=== PATIENT | female | born 1945 | race Caucasian/White ===

== ENCOUNTER 2019-11-07 15:00 | Outpatient (RCR) | payer MEDICARE, SELFPAY ==
--- NOTE | 2019-09-12 15:33 | PTOPEVAL ---
Thank you for referring this patient to [facility]. Please review, sign, date and return this plan of care EDU. Pt referred to therapy following recent injury to her right knee. She demonstrates a decline in her walking speed, right knee range and LE strength compared to her last bout of therapy. She demonstrates a decline on her Stevens balance score and performance with functional transfers, ambulation and negotiating steps. She would benefit from skilled therapy 2x/wk x 5 wk to achieve therapy goals. I agree with and certify that the following plan of care is medically necessary. Referring Physician Date Attending Provider: Aj Crain, Referring Provider: *PT Outpatient Evaluation Start: 09/12/19 12:27 Freq: Status: Active Protocol: Document 09/12/19 12:30 CAP (Rec: 09/12/19 13:49 CAP [email or web address]) Therapy Assessment Status Assessment Status Assessment Status Evaluation Outpatient Past Medical History Neurological History Hx Parkinson's Disease Yes Cardiovascular History Hx Myocardial Infarction Yes Musculoskeletal History Hx Joint Replacement Yes: left TKR Endocrine History Hx Diabetes Yes: border line Evaluation Information Problem Diagnosis right knee pain Cause 2-3 wk ago Subjective Information She was walking 2 wks when she Query Text:As Reported By Patient/ twisted her right knee. She Family stepped wrong and had increased knee pain yesterday when cleaning. She reports limitations with walking in the house and community. She is limited with tolerating steps in the basement. She denies any recent falls. Denies use of assistive device at home. She is performing her HEP inconsistent. She has been using her stationary bike the past two days to improve her knee motion. Diagnostic Tests X-Rays For This Problem No Prior Level of Function Activity Level (Last 3 Months) Occupation retired Activity of Daily Living Ability Needs Some Help Indoor/Home Mobility Independent Community Mobility Needs Some Help Cooking Yes Laundry Yes Driving No Home Setting Home Type House,Multiple Levels Environmental Barriers Stairs, 2-4,Stairs, Greater than 4 Living Situation With Spouse Support Available
--- NOTE | 2019-09-13 13:14 | STOPEVAL ---
Thank you for referring this patient to [facility]. Speech Therapy is recommended x2 week 4 for increasing vocal intensity, mild memory decline, and word finding. Please review, sign, date and return this plan of care EDU. I agree with and certify that the following plan of care is medically necessary. Referring Physician Date Attending Provider: Aj CrainMD Referring Provider: FERMIN Outpatient Initial Evaluation Start: 09/13/19 11:45 Freq: Status: Active Protocol: Document 09/12/19 14:00 LINDY (Rec: 09/13/19 13:13 BECHERERT [email or web address]) Therapy Assessment Status Assessment Status Assessment Status Evaluation Outpatient Past Medical History Neurological History Hx Parkinson's Disease Yes Cardiovascular History Hx Myocardial Infarction Yes Genitourinary History Hx Other Genitourinary Disorders Yes: went to PT for pelvic muscle control Musculoskeletal History Hx Joint Replacement Yes: left TKR Endocrine History Hx Diabetes Yes: border line HEENT History Hx Cataracts Yes: surgery bilateral Integumentary History Hx Other Skin Disorders Yes: skin allergies Evaluation Information Problem Diagnosis Parkinson disease Onset approximately 1 year ago Additional Evaluation Detail Pt presents to OP speech therapy with chief complaints of: people can't hear me and tell me to talk louder, searching for words, and decreased memory . Pt and her spouse reported that she was diagnosed approximately a year ago. They have 1 son who does not live local. 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 She enjoys taking weekend trips, belonging to an [employer], and watching TV. She no longer performs much if any cooking or cleaning and no longer drives. She rarely accompanies her to the grocery store stating that she's too slow. She reports that her vision has become increasingly blurred; therefore, she rarely reads or writes. She is usually never home alone unless her is gone for a short time. Subjective Information
--- NOTE | 2019-10-12 11:25 | PCPTNOTE ---
Patient called & cancelled scheduled appointment this date due to weather and sickness.
--- NOTE | 2019-10-23 15:52 | STOPEVAL ---
SPEECH THERAPY DISCHARGE: Thank you for referring this patient to [facility]. Pt has completed 8 speech therapy visits that focused on improving vocal loudness, word finding, and memory. Upon completion of this re evaluation, pt has achieved all goals; therefore, she will be discharged. Please review, sign, date and return this plan of care EDU. I agree with and certify that the following plan of care is medically necessary. Referring Physician Date Admitting Provider: Attending Provider: Aj CrainMD Referring Provider: FERMIN Outpatient RE Evaluation Start: 09/13/19 11:45 Freq: Status: Active Protocol: Document 10/23/19 15:11 BECHERERT (Rec: 10/23/19 15:52 BECHERERT [email or web address]) Therapy Assessment Status Assessment Status Assessment Status Re-evaluation Outpatient Past Medical History Neurological History Hx Parkinson's Disease Yes Cardiovascular History Hx Myocardial Infarction Yes Genitourinary History Hx Other Genitourinary Disorders Yes: went to PT for pelvic muscle control Musculoskeletal History Hx Joint Replacement Yes: left TKR Endocrine History Hx Diabetes Yes: border line HEENT History Hx Cataracts Yes: surgery bilateral Integumentary History Hx Other Skin Disorders Yes: skin allergies Pain Assessment Timing of Pain Assessment Timing of Pain Assessment Re-assessment Pain Scale Pain Scale Used Numeric (1 - 10) Self Report Pain Assessment Left Knee(s) Reported Pain Level 1 Pain Description Stabbing Right Knee(s) Reported Pain Level 2 Pain Description Stabbing Pain Score Pain Score 2,1: Self Report Language Evaluation Verbal Expression Automatic Speech Ability No Impairments [place] Speech No Impairments Automatic Cued Speech (% Accuracy (0-100 100 )) Open Ended Cued Speech (% Accuracy (0- 100 100)) WH Questions (% Accuracy (0-100)) 100 Confrontational Naming (% Accuracy (0- 100 100)) Sentence Formation Given a Stimulus Word 100 (% Accuracy (0-100)) Sentence Formation in Spontaneous 100 Conversation (% Accuracy (0-100)) Connected Speech No Impairments Response Latency No Impairments Overall Verbal Expression Ability WNL Cognitive Evaluation Orientation/Memory Assessment Immediate Memory 90 Query Text:% Accuracy Recent Memory 100 Query Text:% Accuracy Remote Memory 100 Query Text:% Accuracy Temporal Orientation 100 Query Text:% Accuracy Overall Orientation and Memory mild-mod Orientation/Raul
--- NOTE | 2019-10-23 16:56 | PTOPEVAL ---
Thank you for referring this patient to [facility]. Please review, sign, date and return this plan of care EDU. Pt has received 9 physical therapy visits to address impairments related to her knee pain. She demonstrates progress with walking endurance, LE strength, and knee edema. She presents with increased knee pain at rest and with walking. She has declined with functional mobility on 5 rep sit<>stand and TUG. Pt would benefit from 4 additional visits to finalize her HEP. Cont PT 2x/wk x 2 additional weeks. I agree with and certify that the following plan of care is medically necessary. Referring Physician Date Attending Provider: Aj CrainMD Referring Provider: *PT Outpatient Re-Evaluation Start: 09/12/19 12:27 Freq: Status: Active Protocol: Document 10/23/19 15:59 JOSELUIS (Rec: 10/23/19 16:56 [facility] [email or web address]) Therapy Assessment Status Assessment Status Assessment Status Re-evaluation Outpatient Past Medical History Neurological History Hx Parkinson's Disease Yes Cardiovascular History Hx Myocardial Infarction Yes Genitourinary History Hx Other Genitourinary Disorders Yes: went to PT for pelvic muscle control Musculoskeletal History Hx Joint Replacement Yes: left TKR Endocrine History Hx Diabetes Yes: border line HEENT History Hx Cataracts Yes: surgery bilateral Integumentary History Hx Other Skin Disorders Yes: skin allergies Evaluation Information Problem Diagnosis Parkinson disease Onset approximately 1 year ago Cause 2-3 wk ago Subjective Information Pt reports she twisted her Query Text:As Reported By Patient/ knees on Sat when she turned Family when walking at home. She reports increased knee stiffness with sitting at home . REports her ankle are more swollen since twisting her knees this weekend. States she has compression socks at home , but has not tried to wear them for at least a year. She does not use ice her knee for the pain and swelling. She denies any falls at home. She has not used her bike at home for the past week. She is not consistently performing her HEP and she is not performing community distance walking. Pain Assessment Timing of Pain Assessment Timing of Pain Assessment Re-assessment Pain Scale Pain Scale Used
--- NOTE | 2019-11-07 17:23 | PCPTNOTE ---
Attending Provider: Aj CrainMD Patient:Maxine Kaufman Date of :1945 Patient has received 12 therapy visit from 09/12/19-11/07/19 to address her knee pain and decreased tolerance with functional mobility. She demonstrates limited progress towards her therapy goals and no changes in her right knee pain with therapy. She is independent with her HEP. DC skilled therapy at this time with pt to continue with her walking program, leg bike and daily HEP. Thank you for referring this patient to [facility]. Please review, sign, date and return this discharge summary EDU. I have been updated about the patient's current status and I agree with discharge from the above service at this time. Referring Physician Date
== END 2019-11-08 11:13 | disposition home or self-care (01) ==
LOC: ANHPT 15:00
PROVIDERS: PCP Family Medicine; Visit Provider Family Medicine
DX: G20 Parkinson's disease (principal); R47.89 Other speech disturbances
CPT/HCPCS: 92507; 92523; 97110; 97116; 97129; 97130; 97162; 97530

== ENCOUNTER 2020-03-03 19:48 | Inpatient (IN) | payer MEDICARE, SELFPAY ==
--- NOTE | ~2020-03-03 | CT_ITS ---
EXAMINATION: CT cervical spine wo con EXAM DATE: 03/04/2020 10:26 INDICATION: Initial encounter following injury, with pain of the cervical spine. TECHNIQUE: Spiral CT of the cervical spine was performed without contrast. Axial images were reviewe d. Coronal and sagittal reformatted images were also reviewed. The dose-length product (DLP) for thi s examination was 190.31 mGy-cm. The exposure was tailored according to patient size (auto mA exposu re control), and iterative reconstruction (ASIR) was used as additional dose reduction technique. Th ere is no prior study for comparison. FINDINGS: There is no evidence of acute cervical fracture. The odontoid process is intact. Pre-dens space is normal. Prevertebral soft tissue is normal. There are no soft tissue abnormalities identi fied. There is no disc space widening or traumatic vertebral body subluxation suspected. Advanced l eft-sided cervical facet arthropathy, C5-6 and 6-7 disc disease and uncovertebral joint disease. A d etailed level by level evaluation of spondylosis can be added as addendum if requested. IMPRESSION: 1. No acute cervical fracture. 2. Advanced C5-7 spondylosis, left-sided cervical facet arthropathy. Reviewed, dictated and finalized at location B.
--- NOTE | ~2020-03-03 | XR_ITS ---
EXAMINATION: XR hip LT 1V INDICATION: Postoperative bipolar left hip TECHNIQUE: AP view of the left hip is obtained. COMPARISON: 03/03/2020 FINDINGS: There are expected postsurgical changes of left total hip arthroplasty in anatomic alignmen t. IMPRESSION: 1. Left total hip arthroplasty in anatomic alignment. Please refer to procedure note for full details . Reviewed, dictated and finalized at location A. IMPRESSION: 1. Left total hip arthroplasty in anatomic alignment. Please refer to procedure note for full details.
--- NOTE | ~2020-03-03 | CT_ITS ---
EXAMINATION: CT brain wo con DATE: 03/09/2020 15:26 INDICATION: Postoperative confusion. Parkinson's disease. TECHNIQUE: Computed tomography (CT) of the head was performed without intravenous contrast. The mA wa s adjusted according to patient size. Iterative reconstruction technique was employed. Exam dose: 60 5.33 mGy-cm total exam DLP. COMPARISON: 03/04/2020 CT brain FINDINGS: Cavum septum pellucidum and cavum vergae, anatomic variants. No intracranial mass lesion or hemorrhage or recent cerebrovascular accident is evident. No midline s hift or mass effects. There is nonspecific diminished attenuation of the cerebral white matter, likel y due to chronic small vessel ischemic changes. There are prominent bilateral carotid siphon internal carotid artery calcifications. No subdural or epidural hematoma. No fracture or bone destruction of the cranial vault. The included paranasal sinuses and the mastoid air cells are normally developed and aerated. IMPRESSION: No acute intracranial finding or significant change since 03/04/2020 Reviewed, dictated and finalized at Location A. Reviewed, dictated and finalized at location A.
--- NOTE | ~2020-03-03 | XR_ITS ---
EXAMINATION: XR hip LT 2V w AP pelvis INDICATION: Left hip pain, initial encounter TECHNIQUE: AP view of the pelvis and two views of the left hip are obtained. COMPARISON: None available FINDINGS: There is an acute, traumatic, closed, subcapital fracture of the left femoral neck. The fem oral head remains seated in the acetabulum. No additional acute osseous abnormality is identified. Th ere are phleboliths of the pelvis. A large fundal colonic stool is noted. IMPRESSION: 1. Acute subcapital left femoral neck fracture. Reviewed, dictated and finalized at location A.
--- NOTE | ~2020-03-03 | XR_ITS ---
EXAMINATION: XR chest 1V portable DATE: 03/03/2020 22:09 INDICATION: Neck pain post fall TECHNIQUE: frontal view of the chest was obtained. COMPARISON: Chest radiograph dated 12/24/2017 FINDINGS: Skinfold projects over the left upper lung zone. No airspace opacities, pulmonary edema, pleural effu trisha or pneumothorax. The cardiomediastinal silhouette is normal. Mild thoracic dextrocurvature with moderate spondylosis. IMPRESSION: 1. No acute cardiopulmonary disease. Reviewed, dictated and finalized at location A.
--- NOTE | ~2020-03-03 | XR_ITS ---
XR chest 2V DATE: 03/09/2020 15:33 INDICATION: Fever and shortness of breath TECHNIQUE: AP and lateral views COMPARISON: 03/03/2020 portable AP chest FINDINGS: Normal heart size. Mild aortic calcification and unfolding. No hilar or mediastinal enlarge ment. No pulmonary infiltrate or consolidation, pleural effusion or pulmonary vascular congestion or pneumothorax. Osteopenia. Degenerative spurring of the thoracic and lumbar spine. IMPRESSION: No active cardiopulmonary disease Reviewed, dictated and finalized at location A.
--- NOTE | ~2020-03-03 | CT_ITS ---
EXAMINATION: CT brain wo con EXAM DATE: 03/04/2020 11:48 INDICATION: Initial encounter following injury, with pain of the head. Fall, subsequent headache. TECHNIQUE: Spiral CT of the head was performed without contrast. Axial, coronal and sagittal images were reviewed. The dose-length product (DLP) for this examination was 605.33 mGy-cm. The exposure w as tailored according to patient size, and iterative reconstruction (ASIR) was used as additional dos e reduction technique. There is no prior study for comparison. FINDINGS: There is no acute intraparenchymal hemorrhage. No evidence of intraparenchymal brain mass lesion. No evidence of acute infarction. Please note that initial head CT has limited sensitivity f or small or acute infarctions. 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 There is mild p eriventricular and subcortical hypodensity, nonspecific but probably related to small vessel ischemic disease. There is mild prominence of the sulci and ventricles related to cerebral atrophy. There is intracranial carotid arteriosclerosis. There are no extra-axial collections. There is no mass e ffect or midline shift. Patient has had bilateral ocular lens surgery. Soft tissue is unremarkable. The visualized sinuses and mastoid air cells are well aerated. IMPRESSION: 1. No acute intracranial findings. 2. Mild age-related findings. Reviewed, dictated and finalized at location B.
[2020-03-03 19:53] VITALS: PULSE 76; RESP 17; TEMP 37.3; O2SAT 100
--- NOTE | 2020-03-03 19:55 | ED.FALL ---
HPI - Fall General Chief Complaint: Fall Stated Complaint: L hip pain Time Seen by Provider: 03/03/20 19:54 History of Present Illness HPI Narrative: 74 yo female presents from home c/o left groin pain s/p fall. She was working in the kitchen when she slipped and fell backwards onto her buttocks. She was not able to to stand or ambulate due to the pain in her left groin area. The pain has improved since onset. She did not strike her head. No LOC, dizziness, weakness, back pain. Related Data Home Medications Medication Instructions Recorded Confirmed carbidopa-levodopa 1 tablet PO QID 03/03/20 clopidogrel 75 mg PO DAILY 03/03/20 ezetimibe 10 mg PO DAILY 03/03/20 furosemide 20 mg PO DAILY 03/03/20 gabapentin 100 mg PO TID 03/03/20 lisinopril 10 mg PO DAILY 03/03/20 metoprolol tartrate 50 mg PO BID 03/03/20 Allergies Allergy/AdvReac Type Severity Reaction Status Date / Time No Known Allergies Allergy Verified 03/03/20 21:06 Review of Systems Review of Systems: All systems reviewed & are unremarkable except as noted in HPI and below Constitutional: Constitutional: Denies fever(s) Cardiovascular: Cardiovascular: Denies chest pain Respiratory: Respiratory: Denies dyspnea Gastrointestinal: Gastrointestinal: Denies nausea PMFSH Social History Social History Gender identity (if verbalized by the patient): Female Exam Const: General: no acute distress and alert Orientation/consciousness: patient oriented x3 HENMT: Head: normal to inspection Neck: Neck: normal visual inspection and no lymphadenopathy Chest: Chest palpation & inspection: no tenderness Resp: Effort & Inspection: normal respiratory effort Auscultation: clear to auscultation bilaterally, no rales, no rhonchi and no wheezes Cardio: Jugular venous distension: no JVD Rate: regular rate Rhythm: regular rhythm Heart sounds: no murmurs GI: Inspection: non-distended GI Palp: Yes Soft to palpation and No Tenderness to palpation present (GI) Skin: General skin exam: normal color Neuro: General: patient oriented x3, moves all extremities and CN's II-XI intact bilaterally Speech: normal speech Extrem: Other: Pain with log roll and flexion of left hip. No tenderness or deformity. Psych: Appearance: well kempt Affect: normal affect Course Vital Signs Vital signs: Vital Signs Temperature 37.3 C 03/03/20 19:53 Pulse Rate 76 03/03/20 19:53 Respiratory Rate 17 03/03/20 19:53 Pulse Oximetry 100 03/03/20 19:53 Temperature 36.7 C 03/03/20 23:11 Pulse Rate 71 03/04/20 00:40 Respiratory Rate 16 03/04/20 00:40 Blood Pressure 133/59 L 03/04/20 00:40 Pulse Oximetry 96 03/04/20 00:40 MDM - Fall MDM Narrative Medical decision making narrative: Case discussed with Dr. Agrawal. Will get pre-op labs and admit to the hospitalist. Medical Records Attestation: I reviewed the patient's medical records. Lab Data Attestation: I reviewed the patient's lab results. Result diagrams: 03/03/20 22:28 03/03/20 22:28 Labs: Lab Results 03/03/20 03/03/20 03/03/20 Range/Units 22:28 22:28 22:28 WBC 7.5 (4.5-10.0) K/mm3 RBC 4.09 L (4.2-5.4) M/mm3 Hgb 12.4 (12.0-15.0) g/dL Hct 38.5 (37.0-47.0) % MCV 94.1 (80-100) fl MCH 30.3 (26-34) pg MCHC 32.2 (32-36) g/dl RDW 13.5 (11.5-14.5) % Plt Count 158 (150-375) k/mm3 MPV 10.0 (7.4-10.4) fl Immature Gran % (Auto) 0.4 (0-0.5) % Neut % (Auto) 62.3 (45.5-73.1) % Lymph % (Auto) 29.2 (18.3-44.2) % Merrick % (Auto) 7.1 (2.6-8.5) % Eos % (Auto) 0.7 (0-4.4) % Baso % (Auto) 0.3 (0.2-1.2) % Lymph # (Auto) 2.19 (0.9-3.2) K/mm3 Merrick # (Auto) 0.5 (0.1-0.6) K/mm3 Eos # (Auto) 0.1 (0-0.3) K/mm3 Baso # (Auto) 0.0 (0.0-0.1) K/mm3 Abs Immat Gran (auto) 0.03 (0.00-0.031) K/mm3 Absolute Neuts (auto) 4.7
[2020-03-03 20:01] VITALS: BP 143/60; PULSE 77; RESP 18; TEMP 37.3; O2SAT 100
[2020-03-03 21:12] VITALS: BP 149/66; PULSE 67; RESP 18; TEMP 37.6; O2SAT 97
[2020-03-03] MEDS: MORPHINE SULFATE 2 MG/ML INJ IV PUSH ×2 (21:52→23:25)
[2020-03-03 21:56] VITALS: BP 152/72; PULSE 74; RESP 16; TEMP 36.7; O2SAT 96
[2020-03-03 22:40] LABS: Basophils Percent Auto 0.3 % (0.2-1.2); Eosinophils Absolute Auto 0.1 K/mm3 (0-0.3); Eosinophils Percent Auto 0.7 % (0-4.4); Hematocrit 38.5 % (37.0-47.0); Hemoglobin 12.4 g/dL (12.0-15.0); Immature Granulocyte Absolute 0.03 K/mm3 (0.00-0.031); Immature Granulocyte Percent A 0.4 % (0-0.5); Immature Platelet Fraction Pct 1.8 % (0.9-11.2); Lymphocytes Absolute Auto 2.19 K/mm3 (0.9-3.2); Lymphocytes Percent Auto 29.2 % (18.3-44.2); Mean Corpuscular HGB Conc 32.2 g/dl (32-36); Mean Corpuscular Hemoglobin 30.3 pg (26-34); Mean Corpuscular Volume 94.1 fl (80-100); Monocytes Absolute Auto 0.5 K/mm3 (0.1-0.6); Monocytes Percent Auto 7.1 % (2.6-8.5); Neutrophils Absolute Auto 4.7 K/mm3 (1.3-6.7); Neutrophils Percent Auto 62.3 % (45.5-73.1); Platelet Count Result 158 k/mm3 (150-375); Red Blood Count 4.09 M/mm3 (4.2-5.4); Red Cell Distribution Width 13.5 % (11.5-14.5); White Blood Count 7.5 K/mm3 (4.5-10.0)
[2020-03-03 22:47] LABS: INR 1.1; Partial Thromboplastin Time 28.5 SECONDS (22.3-36.8); Prothrombin Time 13.5 Seconds (11.1-14.7)
[2020-03-03 23:00] LABS: Blood Urea Nitrogen 25 mg/dL (7-17); Calcium 9.1 mg/dL (8.4-10.2); Carbon Dioxide 28 mmol/L (22-30); Chloride 105 mmol/L (98-107); Estimated CRCL calculation 37 ml/min; Estimated Glomerular Filt Rate 54; Glucose 119 mg/dL (65-105); Potassium 3.9 mmol/L (3.4-5.0); Sodium 136 mmol/L (137-145)
[2020-03-03 23:11] VITALS: BP 157/66; PULSE 74; RESP 14; TEMP 36.7; O2SAT 97
[2020-03-04] VITALS (7 sets, daily range): BP systolic 99–162; BP diastolic 36–61; PULSE 54–104; RESP 16–18; TEMP 36.1–37.2; O2SAT 96–100; BMI 26.5
--- NOTE | 2020-03-04 00:53 | ECG_ITS ---
Measurements Intervals [place] Rate: 67 P: 54 [place]: 176 QRS: 39 QRSD: 89 T: 17 QT: 397 QTc: 421 Interpretive Statements SINUS RHYTHM BASELINE ARTIFACT- I, II, III NORMAL ECG Electronically Signed On 03-04-2020 7:07:44 CDT by Willi Navarrete D.O.
[2020-03-04] MEDS: ONDANSETRON INJ 4 MG/2 ML VIAL IV PUSH ×3 (01:38→16:14)
[2020-03-04] MEDS: MORPHINE SULFATE 4 MG/ML INJ IV PUSH (01:38)
[2020-03-04] MEDS: LACTATED RINGERS 1,000 ML 75 ML IV CONT (01:39)
--- NOTE | 2020-03-04 02:08 | PC.NURSE ---
This patient, Maxine Kaufman, was admitted to [facility] Surg Room 317-01. Patient/family oriented to hospital policies and general routines including ID bracelet, bed and alarms, visiting hours, pain management, procedures, bathroom and other care routines, personal items, smoking policy, room service/diet, and visiting hours. Valuables list has been completed. Information on how to activate the Rapid Response Team has been discussed. Patient/Family are encouraged to report perceived risks to care and to ask questions if they do not understand what they are told or what they should do.
--- NOTE | 2020-03-04 06:14 | PM.IMHP ---
H&P: HPI History of Present Illness Chief complaint: Left hip pain after falling Narrative: Date and time of patient contact: 03/04/2020 at 4:00 a.m. Maxine Kaufman is a 74 year old female with a past medical history of coronary artery disease, Parkinson's disease and hypertension who presented to the ER after having fallen. The patient reports that she was cleaning up in the kitchen when her foot slipped and she fell backwards. She denies having hit her head. When she landed she landed on her left hip/buttock and had immediate pain in her groin. She was unable to get up from the floor. Her called EMS and she was brought to the ER. She denies having had any lightheadedness prior to her fall. She did not have any loss of consciousness. Initially she reported that she did not think she hurt her head her neck. At the time of my evaluation she reports that her neck is quite stiff and sore and reports midline tenderness. She denied having any weakness her ill symptoms prior to her fall to the ER staff. However she admits to me that she has been having intermittent dysuria. She has chronic increased urinary frequency/urgency. She does not have an issue with urinary incontinence. She has not noticed any hematuria. She has been having some mild lower extremity edema but denies any shortness of breath on exertion. She does have a distant history of coronary artery disease but has not had any recent chest pain or palpitations. She does admit that she has been having some mild problems remembering numbers and has been slightly more forgetful but she attributes this to her Parkinson's disease. Review of Systems Review of Systems: Narrative: 12 systems were reviewed with pertinent positives and negatives per HPI. Except as documented in the HPI, all other systems were reviewed and are negative. 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 Essential hypertension Parkinsons disease Peripheral neuropathy Surgical History Surgical History (Updated 03/04/20 @ 06:45 by Alyssia Khan DO) History of cardiac catheterization History of dilation and curettage History of total left knee replacement (TKR) November 2017 Status post cataract extraction of both eyes with insertion of intraocular lens Family History Family History Mother Dementia Father Acute myocardial infarction Social History Social History (Updated 03/04/20 @ 07:02 by Alyssia Khan DO) Social History: Primary care physician: Dr. Aj Crain Code status: Full code Smoking status: Never smoker Alcohol intake: current Alcohol use details: She drinks alcohol infrequently and in moderation. Substance use: never Living arrangements: with family Additional living arrangements comments: She lives with her of 59 years. She has 1 son. 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 Gender identity (if verbalized by the patient): Female Sexual Orientation (if Verbalized by the Patient): Straight or Heterosexual Spiritual care concerns: No Meds Home Medications and Allergies Home Medications Medication Instructions Recorded Confirmed Type carbidopa-levodopa 1 tablet PO QID 03/03/20 03/04/20 History clopidogrel 75 mg PO DAILY 03/03/20 03/04/20 History ezetimibe 10 mg PO DAILY 03/03/20 03/04/20 History furosemide 20 mg PO DAILY 03/03/20 03/04/20 History gabapentin 100 mg PO TID 03/03/20 03/04/20 History lisinopril 10 mg PO DAILY 03/03/20 03/04/20 History metoprolol tartrate 50 mg PO BID 03/03/20 03/04/20 History aspirin [Adult Low Dose Aspirin] 81 mg PO DAILY 03/04/20 03/04/20 History Allergies Allergy/AdvReac Type Severity Reaction Status Date / Time No Known Allergies Allergy
[2020-03-04 06:36] LABS: Add Urine Microscopic? YES; Appearance Urine Clear (Clear); Bacteria Urine Trace /hpf; Bilirubin Urine Negative (Negative); Blood Urine Negative (Negative); Color Urine Yellow (Yellow); Glucose Urine UA Negative (Negative); Ketones Urine Trace mg/dL (Negative); Leukocyte Esterase Ur Trace LEU/UL (Negative); Nitrate Urine Negative (Negative); Protein Urine Negative (Negative); RBC Urine 0-2 /hpf (0-2); Specific Grav Ur 1.015 (1.001-1.035); Squamous Epithelial Cell Urine Rare /hpf (Few); WBC Urine 0-3 /hpf
--- NOTE | 2020-03-04 06:39 | PC.NURSE ---
pt was given 2 mg morphine versus [address] order could be clarified and changed.
--- NOTE | 2020-03-04 08:48 | PM.CNOR ---
Assessment and Plan Assessment and plan (1) Fracture of hip, left, closed: Qualifiers: Encounter type: initial encounter Qualified Code(s): S72.002A - Fracture of unspecified part of neck of left femur, initial encounter for closed fracture <DIMAS Owens - Last Filed: 03/04/20 09:55> Code(s): S72.002A - Fracture of unspecified part of neck of left femur, initial encounter for closed fracture <JESSICA OwensP - Last Filed: 03/04/20 09:55> Status: Acute <JESSICA OwensP - Last Filed: 03/04/20 09:55> Assessment and Plan: History, exam and radiographs reviewed with the patient. Radiographs of the left hip reveal an acute subcapital left femoral neck fracture. Discussed fracture type, condition, nature, etiology and course of natural history. Conservative and operative treatment options reviewed as well as the risks and benefits of each. The patient would like to proceed with operative treatment. Discussed left hip bipolar vs. left hip pinning Risks of surgery including but not limited to neurovascular damage, wound complications, blood clot, pulmonary embolus, stroke, myocardial infarction, anesthetic risks up to and including were reviewed. Continued pain and possible dysfunction were explained. No guarantees were offered. The patient understands and wishes to proceed. Would appreciate cardiac clearance given history of OK/stents and potential for larger surgery. Will determine surgical intervention pending cardiac clearance. Will need to continue to hold Plavix. Bedrest Pain control Ice lateral hip <Jeaneth Schneidercarrie PIE CRUST MIXER - Last Filed: 03/04/20 09:55> (2) Neck pain: Code(s): M54.2 - Cervicalgia <Jeaneth Perry [employer] - Last Filed: 03/04/20 09:55> Status: Acute <DIMAS Owens - Last Filed: 03/04/20 09:55> Assessment and Plan: New complaints of cervical spine pain s/p fall. Hospitalist ordered CT of neck. Will await results prior to proceeding with surgical intervention for the left hip. <Jeaenth Schneidercarrie [employer]ER - Last Filed: 03/04/20 09:55> History of Present Illness HPI Consult date: 03/04/20 <DIMAS Owens - Last Filed: 03/04/20 09:55> 03/04/20 <Eloy Agrawal MD - Last Filed: 03/04/20 11:24> Requesting physician: Santos Cesar MD <DIMAS Owens - Last Filed: 03/04/20 09:55> Consult reason: fracture (Left Hip Fracture ) <DIMAS Owens - Last Filed: 03/04/20 09:55> Chief complaint: Left hip pain after falling <DIMAS Owens - Last Filed: 03/04/20 09:55> Narrative: 74 year old female presented to the ED s/p fall at home in her kitchen. The patient states she was working in the kitchen near the sink when she fell backwards onto the floor but does feel she caught herself prior to hitting her head. She denies loss of consciousness. She was unable to stand/ambulate due to increase pain so her contacted EMS. Today she also endorses midline neck pain and stiffness. She is unsure if she hit her neck at the time of injury. She denies chest pain or lightheadedness prior to the fall. Suspect mechanical fall. <DIMAS Owens - Last Filed: 03/04/20 09:55> Review of Systems Constitutional: Constitutional: Denies chills, Denies difficulty sleeping, Denies fatigue and Reports weakness <DIMAS Owens - Last Filed: 03/04/20 09:55> Eyes: Eyes: Denies blurry vision <DIMAS Owens - Last Filed: 03/04/20 09:55> ENT: Reports Normal hearing present and Denies dysphagia <DIMAS Owens - Last Filed: 03/04/20 09:55> Comments: dry mouth <DIMAS Owens - Last Filed: 03/04/20 09:55> Cardiovascular: Cardiovascular: Denies chest pain, Reports leg edema (b/l LE ), Denies lightheadedness and Denies palpitations <DIMAS Owens - Last Filed: 03/04/20 09:55> Respiratory: Respiratory: Denies cough and Denies dyspnea <DIMAS Owens -
[2020-03-04] MEDS: MORPHINE SULFATE 4 MG/ML INJ 2 MG IV PUSH ×2 (08:51→16:14)
[2020-03-04 08:56] LABS: Glucose Point of Care 92 (65-105)
[2020-03-04] MEDS: GABAPENTIN 100 MG CAPSULE PO ×3 (08:57→16:13)
[2020-03-04] MEDS: METOPROLOL TARTRATE 50 MG TAB PO (08:57)
[2020-03-04] MEDS: CARBIDOPA/LEVODOPA 25/100 MG TABLET 1 TABLET PO ×4 (09:00→20:12)
[2020-03-04] MEDS: lisinopriL 10 MG TABLET PO (09:00)
--- NOTE | 2020-03-04 11:12 | PM.IMPN ---
Progress Note: A&P Assessment and Plan (1) Fracture of hip, left, closed: Qualifiers: Encounter type: initial encounter Qualified Code(s): S72.002A - Fracture of unspecified part of neck of left femur, initial encounter for closed fracture Code(s): S72.002A - Fracture of unspecified part of neck of left femur, initial encounter for closed fracture Status: Acute Assessment and Plan: -----continue pain control at this time. Plans for surgery in the near future. Patient has a history of coronary artery disease and her last stent was in 2018. I called her cardiology office and spoke with the nurse because the patient states she has an anomaly and was worried about this. The cardiac nurse states that she gets adequate blood flow to her heart and should not be an issue. The patient has not had any shortness of breath, dyspnea on exertion, or chest pain last few months. With all things considered, she is low to medium risk for surgery but should do just fine. DVT prophylaxis should be deferred to Orthopedic surgery. Plavix and aspirin have been held. (2) Parkinsons disease: Code(s): G20 - Parkinson's disease Status: Acute Assessment and Plan: -----Will continue patient's home Sinemet. Will need PT and OT after surgery. (3) Neck pain: Code(s): M54.2 - Cervicalgia Status: Acute Assessment and Plan: -----patient C-spine does not show any acute fracture. She does have some pain at the base her head. Her neurological exam is within normal limits. Because of her aspirin Plavix usage and her continued headache, CT of the brain will be ordered. (4) Hypertension: Code(s): I10 - Essential (primary) hypertension Status: Acute Assessment and Plan: -----last blood pressure 143/45. Continue lisinopril and metoprolol. Time Spent With Patient Time with patient: 25 - 35 minutes Subjective Date/time seen: 03/04/20 11:12 Interval history: Pt is a 74 y/o female here for left hip fracture. She states she has been having pain in the left hip but the pain medicine does improved this. She has no had any SOB or CP in the last few months. 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 Siddiqi and spoke with nursing staff who says she had a cath in 2018 with a stent in the RCA. No issues since. She does have an anomoly but shouldn't inhibit sx. She still has adequate blood flow to the entire heart. Pt did not hit her head and states she was sitting on the kitchen floor right after he heard her fall. However, she has complaints of pain at the base of her neck with a slight headache which is better with the pain medication. Review of Systems Review of Systems: All systems reviewed & are unremarkable except as noted in HPI and below Exam Narrative: Exam Narrative: General: Well developed well nourished patient resting comfortably in bed in no acute distress HEENT: normocephalic. No hematoma the area of pain that she is describing. No overt cervical neck tenderness. Neck: supple Neuro: Alert and oriented x4. Equal strength the upper lower extremities 5/5. Able to do rapid alternating movements and finger-nose. Cranial nerves 2-12 intact. CV:RRR Resp:CTA Abd: Soft, non distended. No pain to palpation. Positive bowel sounds Extremities: Left leg externally rotated with 2+ pulses and good capillary refill. Trace swelling on the right leg. No erythema Objective Data Vital Signs Vital Signs: Vital Signs - 24 hr 03/03/20 19:53 03/03/20 20:01 03/03/20 21:12 Temperature 99.2 F 99.2 F 99.6 F Pulse Rate 76 77 67 Respiratory Rate 17 18 18 Blood Pressure 143/60 H 149/66 H Pulse Oximetry 100 100 97 03/03/20 21:56 03/03/20 23:11 03/04/20 00:40 Temperature 98.0 F 98.1 F Pulse Rate 74 74 71 Respiratory Rate 16 14 16 Blood Pressure 152/72 H 157/66 H 133/59 L Pulse Oximetry 96 97 96
[2020-03-04 12:03] LABS: Glucose Point of Care 96 (65-105)
[2020-03-04] MEDS: FUROSEMIDE 20 MG TABLET PO (12:21)
[2020-03-04] MEDS: EZETIMIBE 10 MG TABLET PO (12:21)
--- NOTE | 2020-03-04 12:33 | PM.CNCAR ---
Assessment and Plan Assessment and plan (1) Preoperative cardiovascular examination: Code(s): Z01.810 - Encounter for preprocedural cardiovascular examination Status: Acute Assessment and Plan: Patient does have underlying CAD with last stent in the RCA 2017. She denies cardiac symptoms of chest pain or shortness of breath. May proceed for the hip surgery. Plavix can be held. if possible operate while patient on aspirin however has to be held for bleeding risk then resume it after the surgery as soon as safe from surgical standpoint. (2) Hypertension: Code(s): I10 - Essential (primary) hypertension Status: Acute Assessment and Plan: Continue antihypertensives. (3) CAD (coronary artery disease): Code(s): I25.10 - Atherosclerotic heart disease of [place] coronary artery without angina pectoris Status: Acute Assessment and Plan: Continue lisinopril and metoprolol. History of Present Illness History of Present Illness Consult date/time: Date of service: 03/04/20 12:33 this 74-year-old female who is her community nurse is Dr. Siddiqi at [facility] and who has a history of paroxysmal supraventricular tachycardia, statin intolerance, coronary artery disease, hypertension, hyperlipidemia, Parkinson disease. she does have coronary artery disease with the left main coronary artery taking off from the right coronary. distal 95%. Apparently had that time distal RCA stent3 x 24 synergy stent in RCA . recent stress test May 08 1019- for ischemia with ejection fraction 69%. apparently she was in the kitchen cleaning when she slipped and fell down. Left shows fracture of the left femoral head. she denies chest pain, shortness of breath, dizziness, syncope, orthopnea, paroxysmal nocturnal dyspnea. EKG interpreted myself shows normal sinus rhythm no ischemic changes. Requesting physician: Jeaneth Perry FNP Consult reason: Other ( preoperative cardiovascular evaluation) Reason For Visit: Left hip pain after falling Review of Systems Constitutional: Constitutional: Denies chills, Denies fever(s) and Denies poor appetite Eyes: Eyes: Denies eye discharge, Denies loss of vision, Denies eye pain and Denies photophobia ENT: Denies dizziness, Denies epistaxis, Denies nasal congestion and Denies sore throat Cardiovascular: Cardiovascular: Denies chest pain, Denies syncope, Denies pedal edema, Denies leg edema, Denies palpitations, Denies dyspnea, Denies dyspnea on exertion and Denies orthopnea Respiratory: Respiratory: Denies cough, Denies dyspnea, Denies dyspnea on exertion and Denies wheezing Gastrointestinal: Gastrointestinal: Denies abdominal pain, Denies diarrhea, Denies nausea and Denies vomiting Genitourinary: Genitourinary: Denies hematuria, Denies genital lesions and Denies dysuria Musculoskeletal: Musculoskeletal: Reports arthralgias, Reports joint swelling and Denies numbness Integumentary/Breasts: Skin/Breast: Denies pruritus and Denies rash Neurologic: Denies dizziness, Denies syncope, Denies loss of vision and Denies numbness Psychiatric: Psychiatric: Denies anxiety and Denies depression Endocrine: Endocrine: Denies cold intolerance, Denies heat intolerance and Denies palpitations Hematologic/Lymphatic: Hematologic/Lymphatic: Denies easy bleeding and Denies easy bruising Allergic/Immunologic: Allergic/Immunologic: Denies urticaria and Denies wheezing PMFSH Past Medical History Medical History Coronary artery disease Her community nurse is at [place]. Elevated troponin December 2017 Essential hypertension [place] (myocardial infarction) December 2017 Neck pain Neck pain Parkinsons disease Peripheral neuropathy ST segment changes on electrocardiogram December 2017 Surgical History Surgical History H/O heart artery stent History
[2020-03-04 18:01] LABS: Glucose Point of Care 116 (65-105)
[2020-03-05 02:30] LABS: Glucose Point of Care 107 (65-105)
[2020-03-05] MEDS: ACETAMINOPHEN 325 MG TABLET 650 MG PO ×2 (03:21→18:46)
[2020-03-05 06:00] VITALS: BP 136/46; PULSE 72; RESP 18; TEMP 37.1; O2SAT 98
[2020-03-05 06:09] LABS: Glucose Point of Care 106 (65-105)
[2020-03-05 06:12] LABS: Hematocrit 36.8 % (37.0-47.0); Immature Platelet Fraction Pct 2.1 % (0.9-11.2); Mean Corpuscular HGB Conc 32.6 g/dl (32-36); Mean Corpuscular Hemoglobin 30.7 pg (26-34); Mean Corpuscular Volume 94.1 fl (80-100); Platelet Count Result 128 k/mm3 (150-375); Red Blood Count 3.91 M/mm3 (4.2-5.4); Red Cell Distribution Width 13.3 % (11.5-14.5); White Blood Count 6.9 K/mm3 (4.5-10.0)
[2020-03-05 06:27] LABS: Hemoglobin A1C 6.1 % (<5.7)
[2020-03-05 06:38] LABS: Alanine Aminotransferase 7 U/L (4-35); Albumin Level 3.4 g/dL (3.5-5.1); Alkaline Phosphatase 50 U/L (38-126); Aspartate Amino Transferase 30 U/L (14-36); Blood Urea Nitrogen 15 mg/dL (7-17); Calcium 8.4 mg/dL (8.4-10.2); Carbon Dioxide 28 mmol/L (22-30); Chloride 101 mmol/L (98-107); Estimated CRCL calculation 39 ml/min; Estimated Glomerular Filt Rate > 60; Glucose 102 mg/dL (65-105); Magnesium 1.8 mg/dL (1.6-2.3); Potassium 4.1 mmol/L (3.4-5.0); Sodium 134 mmol/L (137-145)
[2020-03-05] MEDS: ONDANSETRON INJ 4 MG/2 ML VIAL IV PUSH (06:47)
[2020-03-05] MEDS: MORPHINE SULFATE 4 MG/ML INJ 2 MG IV PUSH (06:47)
[2020-03-05 09:20] VITALS: BP 173/62; PULSE 76
[2020-03-05] MEDS: GABAPENTIN 100 MG CAPSULE PO ×3 (09:23→17:34)
[2020-03-05] MEDS: EZETIMIBE 10 MG TABLET PO (09:25)
[2020-03-05] MEDS: FUROSEMIDE 20 MG TABLET PO (09:26)
[2020-03-05] MEDS: CARBIDOPA/LEVODOPA 25/100 MG TABLET 1 TABLET PO ×4 (09:26→20:28)
[2020-03-05 09:36] VITALS: PULSE 76
[2020-03-05] MEDS: lisinopriL 10 MG TABLET PO (09:36)
[2020-03-05] MEDS: METOPROLOL TARTRATE 50 MG TAB PO ×2 (09:36→20:28)
--- NOTE | 2020-03-05 11:40 | PM.IMPN ---
Progress Note: A&P Assessment and Plan (1) Fracture of hip, left, closed: Qualifiers: Encounter type: initial encounter Qualified Code(s): S72.002A - Fracture of unspecified part of neck of left femur, initial encounter for closed fracture Code(s): S72.002A - Fracture of unspecified part of neck of left femur, initial encounter for closed fracture Status: Acute Assessment and Plan: Patient presents with acute left subcapital femoral fracture after a fall at home. Appreciate orthopedic surgery recommendations - plan is for surgery tomorrow afternoon with Dr Agrawal. Continue pain control and ice. Plavix and aspirin are held. Further DVT prophylaxis postoperatively will be deferred to ortho recommendations. (2) Neck pain: Code(s): M54.2 - Cervicalgia Status: Acute Assessment and Plan: CT C-spine does not show any acute fracture. She does have some pain at the base her head. Her neurological exam is within normal limits. CT brain shows no acute findings. (3) CAD (coronary artery disease): Qualifiers: Coronary Disease-Associated Artery/Lesion type: [place] artery [place] vs. transplanted heart: [place] heart Associated angina: without angina Qualified Code(s): I25.10 - Atherosclerotic heart disease of [place] coronary artery without angina pectoris Code(s): I25.10 - Atherosclerotic heart disease of [place] coronary artery without angina pectoris Status: Chronic Assessment and Plan: History of CAD with coronary stent to RCA in 2018. Her capital equipment specialist is Dr Siddiqi in [place]. She has been seen here by Dr Silverman and cleared for surgery. Plavix and ASA are held and agree can be restarted postoperatively as soon as it is safe from ortho surgery standpoint. (4) Parkinsons disease: Code(s): G20 - Parkinson's disease Status: Acute Assessment and Plan: Will continue patient's home Sinemet. Will need PT and OT after surgery. (5) Hypertension: Qualifiers: Hypertension type: essential hypertension Qualified Code(s): I10 - Essential (primary) hypertension Code(s): I10 - Essential (primary) hypertension Status: Acute Assessment and Plan: Stable maintained on lisinopril and metoprolol. Will monitor. Subjective Date/time seen: 03/05/20 11:30 Interval history: Ms. Kaufman is a 74yo F admitted for left hip fracture after a fall at home. Her main complaint today is neck discomfort. She is seen this morning with her at the bedside. She reports her neck and hip hurt worse with any movement; hip is okay at rest but she cannot get comfortable due to neck discomfort. She denies chest pain, shortness of breath, cough, or palpitations. She has tolerated some oral intake without nausea or vomiting. Review of Systems Review of Systems: Narrative: Twelve systems were reviewed with pertinent positives and negatives as per HPI. Exam Narrative: Exam Narrative: General: Patient resting supine in bed in no acute distress although mildly uncomfortable with neck discomfort. Neck: Range of motion intact, no point tenderness. HEENT: Normocephalic, EOMI, oral mucosa moist. Cardiovascular: Rate and rhythm are regular. Respiratory: Lungs clear to auscultation all torre. Non-labored breathing. Tolerating room air. Abdomen: Soft, non-tender, non-distended, bowel sounds present. Extremities: Peripheral pulses intact. No edema. Left lower extremity is neurovascularly intact distal to the fracture site. Neuro: No focal neurological deficits. Speech is clear. Objective Data Vital Signs Vital Signs: Vital Signs - 24 hr 03/04/20 14:00 03/04/20 22:00 03/04/20 22:45 Temperature 98.7 F 98.9 F Pulse Rate 56 L 54 L 67 Respiratory Rate 16 18 Blood Pressure 108/36 L 99/40 L
[2020-03-05 12:34] LABS: Glucose Point of Care 205 (65-105)
[2020-03-05] MEDS: INSULIN ASPART (*BKC) 100 UNITS/ML SUB-Q (12:58)
[2020-03-05 14:00] VITALS: BP 107/43; PULSE 65; RESP 16; TEMP 36.6; O2SAT 100
--- NOTE | 2020-03-05 14:18 | WPDANESEPPF ---
Anes - Initial Pre Proc Eval Procedure: Operation Date: 03/06/20 12:00 Proposed Procedures p Left Bipolar Hip Replacement - Eloy Agrawal MD Date/Time: 03/05/20 14:18 Pre Op Diagnosis: Left hip pain after falling Patient Data Age: 74 Gender: F Height: 1.6 m Weight: 67.9 kg Last Vital Signs Temp 36.6 C 03/05/20 14:00 Pulse 65 03/05/20 14:00 Resp 16 03/05/20 14:00 BP 107/43 L 03/05/20 14:00 Pulse Ox 100 03/05/20 14:00 Allergies Allergy/AdvReac Type Severity Reaction Status Date / Time No Known Allergies Allergy Verified 03/06/20 11:03 Home Medications Medication Instructions Recorded Confirmed Type carbidopa-levodopa 1 tablet PO QID 03/03/20 03/04/20 History clopidogrel 75 mg PO DAILY 03/03/20 03/04/20 History ezetimibe 10 mg PO DAILY 03/03/20 03/04/20 History furosemide 20 mg PO DAILY 03/03/20 03/04/20 History gabapentin 100 mg PO TID 03/03/20 03/04/20 History lisinopril 10 mg PO DAILY 03/03/20 03/04/20 History metoprolol tartrate 50 mg PO BID 03/03/20 03/04/20 History aspirin [Adult Low Dose Aspirin] 81 mg PO DAILY 03/04/20 03/04/20 History Laboratory Tests 03/04/20 03/05/20 03/05/20 17:57 00:34 05:42 WBC RBC Hgb Hct MCV MCH MCHC RDW Plt Count MPV % Immature Plt Fraction Sodium Potassium Chloride Carbon Dioxide BUN Creatinine Estim Creat Clear Calc Estimated GFR Glucose POC Capillary Glucose 116 mg/dl H mg/dl 107 mg/dl mg/dl 106 mg/dl mg/dl (65-105) (65-105) (65-105) Hemoglobin A1c Calcium Magnesium Total Bilirubin Direct Bilirubin AST ALT Alkaline Phosphatase Total Protein Albumin 03/05/20 03/05/20 03/05/20 05:49 05:49 05:49 WBC 6.9 K/mm3 K/mm3 (4.5-10.0) RBC 3.91 M/mm3 L M/mm3 (4.2-5.4) Hgb 12.0 g/dL g/dL (12.0-15.0) Hct 36.8 % L % (37.0-47.0) MCV 94.1 fl fl (80-100) MCH 30.7 pg pg (26-34) MCHC 32.6 g/dl g/dl (32-36) RDW 13.3 % % (11.5-14.5) Plt Count 128 k/mm3 L k/mm3 (150-375) MPV 10.0 fl fl (7.4-10.4) % Immature Plt Fraction 2.1 % % (0.9-11.2) Sodium 134 mmol/L L mmol/L (137-145) Potassium 4.1 mmol/L mmol/L (3.4-5.0) Chloride 101 mmol/L mmol/L (98-107) Carbon Dioxide 28 mmol/L mmol/L (22-30) BUN 15 mg/dL D mg/dL (7-17) Creatinine 0.90 mg/dL mg/dL (0.7-1.0) Estim Creat Clear Calc 39 ml/min ml/min Estimated GFR > 60 (59 - ) Glucose 102 mg/dL mg/dL (65-105) POC Capillary Glucose Hemoglobin A1c 6.1 % H % (<5.7) Calcium 8.4 mg/dL mg/dL (8.4-10.2) Magnesium 1.8 mg/dL mg/dL (1.6-2.3) Total Bilirubin 1.0 mg/dL mg/dL (0.2-1.3) Direct Bilirubin 0.0 mg/dL mg/dL (0-0.3) AST 30 U/L U/L (14-36) ALT 7 U/L U/L (4-35) Alkaline Phosphatase 50 U/L U/L (38-126) Total Protein 6.0 g/dL L g/dL (6.3-8.2) Albumin 3.4 g/dL L g/dL (3.5-5.1) 03/05/20 12:25 WBC RBC Hgb Hct MCV MCH MCHC RDW Plt Count MPV % Immature Plt Fraction Sodium Potassium Chloride Carbon Dioxide BUN Creatinine Estim Creat Clear Calc Estimated GFR Glucose POC Capillary Glucose 205 mg/dl H mg/dl (65-105) Hemoglobin A1c Calcium Magnesium Total Bilirubin Direct Bilirubin AST ALT Alkaline Keri
--- NOTE | 2020-03-05 15:21 | PM.PNORT ---
Progress Note: A&P Assessment and Plan (1) Fracture of hip, left, closed: Qualifiers: Encounter type: initial encounter Qualified Code(s): S72.002A - Fracture of unspecified part of neck of left femur, initial encounter for closed fracture Code(s): S72.002A - Fracture of unspecified part of neck of left femur, initial encounter for closed fracture Status: Acute Assessment and Plan: History, exam and radiographs reviewed with the patient and at the bedside. Radiographs of the left hip reveal an acute subcapital left femoral neck fracture. Discussed fracture type, condition, nature, etiology and course of natural history. Conservative and operative treatment options reviewed as well as the risks and benefits of each. The patient would like to proceed with operative treatment. Discussed left hip bipolar replacement Risks of surgery including but not limited to neurovascular damage, wound complications, blood clot, pulmonary embolus, stroke, myocardial infarction, anesthetic risks up to and including were reviewed. Continued pain and possible dysfunction were explained. No guarantees were offered. The patient understands and wishes to proceed. Plan: LEFT hip bipolar replacement by Dr. Agrwaal. Appreciate cardiology/medicine recommendations and clearance. Plavix/Aspirin on hold. Will resume postoperatively as directed. Obtain consent. NPO after midnight. Continue bedrest. Continue sauer catheter until post op when patient is ambulatory. Continue pain control. SCD RLE. Ice lateral hip. (2) Neck pain: Code(s): M54.2 - Cervicalgia Status: Acute Assessment and Plan: CT scan of the neck reviewed. CT scan reveals no acute cervical fracture and advanced C5-7 spondylosis, left-sided cervical facet arthropathy. Continue conservative treatment at this time. Subjective Subjective Date/Time Seen: 03/05/20 15:21 Review of Systems Constitutional: Constitutional: Denies chills, Denies difficulty sleeping, Denies fatigue and Reports weakness Eyes: Eyes: Denies blurry vision ENT: Reports Normal hearing present and Denies dysphagia Comments: dry mouth Cardiovascular: Cardiovascular: Denies chest pain, Reports leg edema (b/l LE ), Denies lightheadedness and Denies palpitations Respiratory: Respiratory: Denies cough and Denies dyspnea Gastrointestinal: Gastrointestinal: Denies abdominal pain, Denies bloating, Denies diarrhea, Denies nausea and Denies vomiting Genitourinary: Genitourinary: Reports no additional female genitourinary complaints Musculoskeletal: Musculoskeletal: Reports arthralgias (left groin ), Reports joint swelling (left hip ), Reports neck pain (midline cervicle spine pain ) and Reports stiffness (cervical spine pain ) Integumentary/Breasts: Skin/Breast: Denies erythema, Denies skin pain and Denies wounds Neurologic: Reports abnormal gait (bed rest ), Denies confusion, Denies headache(s) and Denies numbness Exam Const: General: comfortable and no acute distress HENMT: Mouth: Yes dry mucous membranes Eyes: General: appearance normal, both eyes and all related structures Neck: Neck: supple Resp: Effort & Inspection: normal respiratory effort Cardio: Rate: regular rate Rhythm: regular rhythm GI: Inspection: non-distended GI Palp: Yes Soft to palpation and No Tenderness to palpation present (GI) Skin: General skin exam: normal color and no rashes or lesions noted Neuro: General: No gait normal (bedrest ) Cognition (Neuro): normal cognition Speech: normal speech (limited due to dry mouth ) Motor exam (neuro): 5/5 motor strength present throughout (limited LLE ) Extrem: Right upper extremity: normal to inspection, full ROM and normal capillary refill Left upper extremity: normal to inspection, full ROM and normal capillary refill Right lower extremity: normal to inspection, full ROM, normal capillary refill, hip/thigh, knee, lower leg,
[2020-03-05 18:01] LABS: Glucose Point of Care 102 (65-105)
[2020-03-05 20:28] VITALS: PULSE 65
[2020-03-05 22:00] VITALS: BP 116/52; PULSE 66; RESP 18; TEMP 37.1; O2SAT 97
[2020-03-05 22:39] LABS: Glucose Point of Care 175 (65-105)
[2020-03-06] VITALS (12 sets, daily range): BP systolic 124–179; BP diastolic 48–97; PULSE 65–108; RESP 18–20; TEMP 36.2–36.7; O2SAT 92–100
[2020-03-06] MEDS: MORPHINE SULFATE 4 MG/ML INJ 2 MG IV PUSH ×2 (04:06→06:18)
[2020-03-06 06:14] LABS: Hemoglobin 13.5 g/dL (12.0-15.0)
[2020-03-06 06:26] LABS: Blood Urea Nitrogen 20 mg/dL (7-17); Calcium 9.2 mg/dL (8.4-10.2); Carbon Dioxide 28 mmol/L (22-30); Chloride 104 mmol/L (98-107); Estimated CRCL calculation 35 ml/min; Estimated Glomerular Filt Rate 54; Glucose 115 mg/dL (65-105); Potassium 3.6 mmol/L (3.4-5.0); Sodium 136 mmol/L (137-145)
[2020-03-06 08:19] LABS: Glucose Point of Care 129 (65-105)
[2020-03-06] MEDS: CARBIDOPA/LEVODOPA 25/100 MG TABLET 1 TABLET PO (09:49)
[2020-03-06] MEDS: lisinopriL 10 MG TABLET PO (09:50)
[2020-03-06] MEDS: METOPROLOL TARTRATE 50 MG TAB PO (09:50)
[2020-03-06] MEDS: GABAPENTIN 100 MG CAPSULE PO (09:50)
[2020-03-06] MEDS: EZETIMIBE 10 MG TABLET PO (09:50)
[2020-03-06] MEDS: LACTATED RINGERS 1,000 ML 30 ML IV CONT ×2 (10:45→17:00)
[2020-03-06] MEDS: IBUPROFEN IV 800 MG/200 ML 800 MG/200 ML BAG 400 MG IVPB (11:00)
[2020-03-06] MEDS: TRANEXAMIC ACID 1,000MG/ISO100 1,000 MG/100 ML BAG 100 MG IVPB (11:30)
--- NOTE | 2020-03-06 12:08 | PC.NURSE ---
To OR per bed on 03/06/2020 at 1032, IV saline locked.
[2020-03-06] MEDS: ceFAZolin 2 GM/D5W 50 ML 2 GM/50 ML BAG IVPB (14:20)
--- NOTE | 2020-03-06 17:02 | PM.PROC ---
Procedure Note - Detailed Date of procedure: 03/06/20 Pre-op diagnosis: Left hip pain after falling Left hip femoral neck fracture, nickel allergy Post-op diagnosis: same Procedure performed: left total hip arthroplasty Description of procedure: Indications: Patient is a 74-year-old woman who fell and sustained a left hip femoral neck fracture with varus angulation and displacement. She is indicated for treatment with hip replacement. 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 She is unable to proceed with regular metal implants which include nickel. She is indicated for a titanium prosthesis with ceramic head to limit the amount metal interaction. Dr. Barron required for assistance with surgery due to the patient having Parkinson's disease as well as deformity of the proximal femoral neck and the acetabulum. Dr. Barron and Nghia present for the positioning of the patient, surgical procedure until transferred to the recovery room. What was done: Patient identified in the preoperative holding. Informed consent given. Operative extremity marked. Patient received intravenous antibiotics. Patient brought to the operating room where underwent general anesthetic by anesthesia team. Positioned Lateral decubitus with the right side down on the operative side up on operating room table. care was taken to protect and secure the head neck during positioning. Pegboard was used to position. Padding was used for the down side and bony prominences. Time-out performed confirming the patient, site of the surgery and the plan. Left hip prepped draped usual sterile surgical fashion using a ChloraPrep skin solution. Longitudinal incision made over the lateral aspect of the proximal femur and hip with a 10 blade knife. Hemostasis controlled electrocautery. Dissection carried down to the fascia. Subfascial retractor placed. Aqua Mantis used for bleeding control. Short external rotators elevated off the posterior femoral neck in the hip joint was exposed. Fracture hematoma was evacuated. Femoral neck cut made with a sagittal saw. The neck pieces removed with a rongeur. Femoral head then removed with a corkscrew and measured on the back table. The acetabulum was then prepared. Retractors were placed. The superior labrum was removed. Curette used to remove any loose or present cartilage. Acetabular reaming then performed. Care was taken not to medialized the cup. Reaming was taken up to a size 49 mm. 50 mm cup then trialed and noted to have good fit and position. Trial removed and the acetabulum was thoroughly irrigated. Bone graft from the femoral head was then reversed reamed into the acetabulum and the implant cup was impacted into position. Two titanium screws were then used for final fixation. Good fit, position with correct anteversion and abduction noted. Polyethylene liner with 10 degree lip liner impacted into position. Proximal femur then prepared. Femoral retractor placed and the femoral canal was prepared. Canal finer used. Lateralize her used. Intramedullary reamers then used until good fit noted at a size 12. Proximal broaching then done starting with a size 7 and proceeding by single sizes up to size 12 which had good fit. The hip was then trialed and we settled on high offset +6 neck which showed equal leg length to the opposite side in good stability in extension and 90? of flexion with full internal and external rotation. Trials removed and the femoral canal was irrigated and suctioned. Size 12 femur then impacted in the position with care to correct anteversion. Trialing done once again and the high offset +6 length head impacted into place on the femoral stem. 36 mm ceramic head used. Hip reduced and again taken through full range of motion, external rotation in internal rotation and noted to be stable. Thorough irrigation done and suctioned out. Short external rotators repaired through drill holes in the poste
[2020-03-06 17:48] LABS: Glucose Point of Care 198 (65-105)
--- NOTE | 2020-03-06 18:08 | PM.IMPN ---
Progress Note: A&P Assessment and Plan (1) Fracture of hip, left, closed: Qualifiers: Encounter type: initial encounter Qualified Code(s): S72.002A - Fracture of unspecified part of neck of left femur, initial encounter for closed fracture Code(s): S72.002A - Fracture of unspecified part of neck of left femur, initial encounter for closed fracture Status: Acute Assessment and Plan: Patient presents with acute left subcapital femoral fracture after a fall at home. POD#0 left total hip arthroplasty this afternoon by Dr Agrawal and Dr Barron. EBL 1000mL per the op note, monitor H&H. Continue pain control and ice. Plavix and aspirin are held. Further pain control and DVT prophylaxis postoperatively will be deferred to ortho recommendations. Confusion immediately postop; would try to limit/avoid narcotics tonight if possible. (2) Neck pain: Code(s): M54.2 - Cervicalgia Status: Acute Assessment and Plan: CT C-spine does not show any acute fracture. CT brain shows no acute findings. Supportive care. (3) CAD (coronary artery disease): Qualifiers: Coronary Disease-Associated Artery/Lesion type: [place] artery [place] vs. transplanted heart: [place] heart Associated angina: without angina Qualified Code(s): I25.10 - Atherosclerotic heart disease of [place] coronary artery without angina pectoris Code(s): I25.10 - Atherosclerotic heart disease of [place] coronary artery without angina pectoris Status: Chronic Assessment and Plan: History of CAD with coronary stent to RCA in 2018. Her food dehydrator operator is Dr Siddiqi in [place]. She has been seen here by Dr Silverman. Plavix and ASA are held and agree can be restarted postoperatively as soon as it is safe from ortho surgery standpoint. (4) Parkinsons disease: Code(s): G20 - Parkinson's disease Status: Acute Assessment and Plan: Will continue patient's home Sinemet. Will need PT and OT after surgery. (5) Hypertension: Qualifiers: Hypertension type: essential hypertension Qualified Code(s): I10 - Essential (primary) hypertension Code(s): I10 - Essential (primary) hypertension Status: Acute Assessment and Plan: Stable maintained on lisinopril and metoprolol. Will monitor. Subjective Date/time seen: 03/06/20 18:15 Interval history: Ms. Kaufman is a 74yo F admitted for left hip fracture after a fall at home. She is seen in follow-up this evening immediately on returning from PACU with her at the bedside. She is confused. She notes stop hurting me and i'm bleeding repetitively. Unable to obtain review of systems due to mental status. Patient minimally cooperative for most of exam. Review of Systems Review of Systems: Narrative: Twelve systems were reviewed with pertinent positives and negatives as per HPI. Exam Narrative: Exam Narrative: General: Patient resting supine in bed. Neuro: Confused. Not able to participate in full neuro exam due to agitation however she is moving both arms spontaneously and no focal deficits are appreciated. HEENT: Normocephalic, EOMI, oral mucosa tacky. Cardiovascular: Rate and rhythm are regular. Respiratory: Patient declines exam, pushing my stethoscope away. Abdomen: Appears non-distended, patient not allowing auscultation or palpation. Extremities: Ice pack to left hip. Wiggling left toes. No edema or erythema appreciated on limited exam. Objective Data Vital Signs Vital Signs: Last Vital Signs Temp 98.1 F 03/06/20 17:00 Pulse 108 H 03/06/20 18:45 Resp 18 03/06/20 18:45 BP 142/68 H 03/06/20 18:45 Pulse Ox 100 03/06/20 18:45 Intake/Output Intake/Output: Intake & Output 03/03/20 03/04/20 03/05/20 03/06/20 23:59 23:59 23:59 23:59 Intake To
[2020-03-06 18:19] LABS: Hematocrit 38.4 % (37.0-47.0); Hemoglobin 12.2 g/dL (12.0-15.0)
[2020-03-06] MEDS: KCL 20 MEQ/D5/0.45% SOD CHL 1,000 ML 80 ML IV CONT (18:55)
--- NOTE | 2020-03-06 20:02 | PC.NURSE ---
Returned from OR per bed on 03/06/2020 at 1800. Report received from YISEL Stiles.
[2020-03-06 22:12] LABS: Glucose Point of Care 255 (65-105)
[2020-03-07 02:05] VITALS: BP 122/52; PULSE 97; RESP 16; TEMP 36.6; O2SAT 99
[2020-03-07 06:00] VITALS: BP 120/63; PULSE 91; RESP 16; TEMP 36.4; O2SAT 97
[2020-03-07 06:23] LABS: Basophils Percent Auto 0.1 % (0.2-1.2); Hematocrit 30.6 % (37.0-47.0); Hemoglobin 9.7 g/dL (12.0-15.0); Immature Granulocyte Absolute 0.04 K/mm3 (0.00-0.031); Immature Granulocyte Percent A 0.4 % (0-0.5); Lymphocytes Absolute Auto 0.96 K/mm3 (0.9-3.2); Lymphocytes Percent Auto 9.1 % (18.3-44.2); Mean Corpuscular HGB Conc 31.7 g/dl (32-36); Mean Corpuscular Hemoglobin 30.2 pg (26-34); Mean Corpuscular Volume 95.3 fl (80-100); Mean Platelet Volume 10.7 fl (7.4-10.4); Monocytes Absolute Auto 0.9 K/mm3 (0.1-0.6); Monocytes Percent Auto 8.4 % (2.6-8.5); Neutrophils Absolute Auto 8.7 K/mm3 (1.3-6.7); Platelet Count Result 109 k/mm3 (150-375); Red Blood Count 3.21 M/mm3 (4.2-5.4); Red Cell Distribution Width 13.2 % (11.5-14.5); White Blood Count 10.6 K/mm3 (4.5-10.0)
[2020-03-07 06:35] LABS: Blood Urea Nitrogen 23 mg/dL (7-17); Calcium 8.5 mg/dL (8.4-10.2); Carbon Dioxide 22 mmol/L (22-30); Chloride 103 mmol/L (98-107); Estimated CRCL calculation 35 ml/min; Estimated Glomerular Filt Rate 54; Glucose 232 mg/dL (65-105); Potassium 4.8 mmol/L (3.4-5.0); Sodium 133 mmol/L (137-145)
--- NOTE | 2020-03-07 09:20 | PM.PNORT ---
Progress Note: A&P Assessment and Plan (1) S/P total hip arthroplasty: Qualifiers: Laterality: left Qualified Code(s): Z96.642 - Presence of left artificial hip joint Code(s): Z96.649 - Presence of unspecified artificial hip joint Status: Acute Assessment and Plan: POD #1: LEFT JADA Continue PT/OT. WBAT. Walker. Fall Risk. Monitor H&H. Resume anticoagulation. Monitor dressing. Change POD #2. Continue to monitor limitations with dorsiflexion of the LLE. Patient may require orthosis from Deputy Director Of Finance prior to discharge pending progress. Continue Pain control. Limit narcotics due to drowsiness. Ice lateral hip. Incentive spirometry. SCDs bilaterally. Dispo: SNF vs. [facility] when medically stable pending progress with PT/OT. Subjective Subjective Date/Time Seen: 03/07/20 0830 POD #1: LEFT JADA Patient awake, some confusion/drowsiness this AM. Confusion overnight per nursing staff. Answering questions appropriately. C/o feeling weak. Overall, pain well controlled. Review of Systems Constitutional: Constitutional: Denies chills, Reports fatigue, Denies night sweats and Reports weakness Cardiovascular: Cardiovascular: Denies chest pain and Denies lightheadedness Respiratory: Respiratory: Denies dyspnea and Denies wheezing Gastrointestinal: Gastrointestinal: Denies abdominal pain, Denies constipation, Denies diarrhea, Denies nausea and Denies vomiting Musculoskeletal: Musculoskeletal: Reports arthralgias (left hip pain ), Reports joint swelling (left hip ) and Reports other (decreased motion of the left foot ) Exam Const: General: comfortable and no acute distress Resp: Effort & Inspection: normal respiratory effort Cardio: Rate: regular rate Rhythm: regular rhythm GI: Inspection: non-distended Skin: General skin exam: normal color Other: Incision left hip c/d/i. Neuro: General: No gait normal Cognition (Neuro): normal cognition (drowsy ) Speech: normal speech Extrem: Left lower extremity: hip/thigh Details: tenderness Location: of the hip Location: laterally and anteriorly, swelling Location: of the hip, abnormal ROM (limited due to recent surgical intervention. ) Details: with range as follows (deferred due to surgical intervention ) and ecchymosis (lateral hip- no hematoma noted ); ROM abnormal, no crepitus and no unusual warmth, knee (old TKA incision well-healed ) Details: abnormal ROM (limited due to hip pain ); no tenderness and no swelling, lower leg (Negative Maricel's Sign ) Details: no tenderness, ankle Details: abnormal ROM (inability to dorsiflexion left foot/left hallux ) Details: no pain with active ROM and no pain with passive ROM and foot Details: normal capillary refill, abnormal ROM of toe (no dorsiflexion ), vascular exam Details: dorsalis pedis pulse present and normal capillary refill, tendon exam and motor-sensory exam light-touch abnormal (decreased ) Objective Data Vital Signs Vital Signs: Vital Signs - 24 hr 03/06/20 09:50 03/06/20 10:56 03/06/20 15:39 Temperature 36.5 C Pulse Rate 80 65 105 H Respiratory Rate 20 18 Blood Pressure 124/48 L 179/78 H Pulse Oximetry 97 98 03/06/20 17:00 03/06/20 17:15 03/06/20 17:30 Temperature 36.7 C Pulse Rate 72 70 90 Respiratory Rate 19 20 20 Blood Pressure 136/72 171/70 H 169/79 H Pulse Oximetry 93 100 98 03/06/20 17:45 03/06/20 18:00 03/06/20 18:45 Temperature Pulse Rate 80 108 H 108 H Respiratory Rate 20 18 18 Blood Pressure 164/86 H 156/97 H 142/68 H Pulse Oximetry 98 94 100 03/06/20 19:45 03/06/20 20:28 03/07/20 02:05 Temperature 36.2 C L 36.6 C Pulse Rate 96 97 Respiratory Rate 18 16 Blood Pressure 131/55 L 122/52 L Pulse Oximetry 98 93 99 03/07/20 06:00 Temperature 36.4 C Pulse Rate 91 Respiratory Rate 16 Blood Pressure 120/63 Pulse Oximetry 97 Intake/Output Intake/Output: Intake & Output 03/04/20 03/05/20 03/06/20 03/07/20 23:59 23:59 23:59 23:59 Intake [place]
[2020-03-07 09:21] VITALS: BMI 10.0
[2020-03-07 09:22] VITALS: BMI 10.0
[2020-03-07 09:51] VITALS: BP 109/52
[2020-03-07] MEDS: ACETAMINOPHEN 325 MG TABLET 650 MG PO ×2 (10:07→18:40)
[2020-03-07] MEDS: EZETIMIBE 10 MG TABLET PO (10:10)
[2020-03-07] MEDS: DOCUSATE SODIUM 100 MG CAPSULE PO ×2 (10:10→17:33)
[2020-03-07] MEDS: FUROSEMIDE 20 MG TABLET PO (10:10)
[2020-03-07] MEDS: GABAPENTIN 100 MG CAPSULE PO ×3 (10:10→17:33)
[2020-03-07] MEDS: CARBIDOPA/LEVODOPA 25/100 MG TABLET 1 TABLET PO ×4 (10:10→21:21)
[2020-03-07] MEDS: KCL 20 MEQ/D5/0.45% SOD CHL 1,000 ML 80 ML IV CONT (10:15)
[2020-03-07 10:19] LABS: Glucose Point of Care 153 (65-105)
--- NOTE | 2020-03-07 10:32 | PM.IMPN ---
Progress Note: A&P Assessment and Plan (1) Fracture of hip, left, closed: Qualifiers: Encounter type: initial encounter Qualified Code(s): S72.002A - Fracture of unspecified part of neck of left femur, initial encounter for closed fracture Code(s): S72.002A - Fracture of unspecified part of neck of left femur, initial encounter for closed fracture Status: Acute Assessment and Plan: Patient presents with acute left subcapital femoral fracture after a fall at home. POD#1 left total hip arthroplasty 7/ by Dr Agrawal and Dr Barron. EBL 1000mL per the op note, monitor H&H. Wound care, pain control, and DVT prophylaxis postoperatively per ortho recommendations. Confusion is improved from last night, still a bit slow to answer questions. Would recommend continuing to avoid narcotics if possible. (2) Hypotension: Qualifiers: Hypotension type: unspecified hypotension type Qualified Code(s): I95.9 - Hypotension, unspecified Code(s): I95.9 - Hypotension, unspecified Status: Acute Assessment and Plan: Noted when trying to stand with therapy, patient was dizzy. Low urine output and bladder scan < 100mL. [place] to be secondary to dehydration. 500mL NS bolus x 1 then keep 100mL/hr for now. Monitor BP. (3) Neck pain: Code(s): M54.2 - Cervicalgia Status: Acute Assessment and Plan: CT C-spine does not show any acute fracture. CT brain shows no acute findings. Supportive care. (4) CAD (coronary artery disease): Qualifiers: Associated angina: without angina Coronary Disease-Associated Artery/Lesion type: [place] artery [place] vs. transplanted heart: [place] heart Qualified Code(s): I25.10 - Atherosclerotic heart disease of [place] coronary artery without angina pectoris Code(s): I25.10 - Atherosclerotic heart disease of [place] coronary artery without angina pectoris Status: Chronic Assessment and Plan: History of CAD with coronary stent to RCA in 2018. Her mapping pilot is Dr Siddiqi in [place]. She has been seen here by Dr Silverman. Plavix and ASA resumed. (5) Parkinsons disease: Code(s): G20 - Parkinson's disease Status: Acute Assessment and Plan: Continue patient's home Sinemet. May contribute to slower cognitive reaction after anesthesia and pain medications yesterday. PT/OT. (6) Hypertension: Qualifiers: Hypertension type: essential hypertension Qualified Code(s): I10 - Essential (primary) hypertension Code(s): I10 - Essential (primary) hypertension Status: Acute Assessment and Plan: With hypotension as noted above. Her home metoprolol and lisinopril were held today. Will monitor and adjust treatment as needed. Subjective Date/time seen: 03/07/20 10:00 Interval history: Ms. Kaufman is a 74yo F admitted for left hip fracture after a fall at home seen in follow up this morning POD#1 s/p left total hip arthroplasty. She is doing okay, sleepy but less confused than last night. She is able to answer questions appropriately but takes a bit of time to answer a question. She denies chest pain or shortness of breath. No nausea or vomiting. Notified by nursing later this afternoon of some dizziness standing with therapy and hypotension. Review of Systems Review of Systems: Narrative: Twelve systems were reviewed with pertinent positives and negatives as per HPI. Exam Narrative: Exam Narrative: General: Patient resting comfortably in bed. Neuro: Awake but sleepy, oriented x3 but delayed responses. HEENT: Normocephalic, EOMI, oral mucosa tacky. Cardiovascular: Rate and rhythm are regular. Respiratory: Lungs clear to auscultation. Nonlabored breathing, tolerating room air. Abdomen: Soft, nontender, non
[2020-03-07] MEDS: ASPIRIN 81 MG ENTERIC TABLET PO (11:58)
[2020-03-07] MEDS: CLOPIDOGREL BISULFATE 75 MG TABLET PO (11:58)
[2020-03-07] MEDS: INSULIN ASPART (*BKC) 100 UNITS/ML SUB-Q (13:17)
[2020-03-07] MEDS: FONDAPARINUX SODIUM 2.5 MG/0.5 ML SYRINGE SUB-Q (13:19)
[2020-03-07 13:57] VITALS: BMI 10.0
[2020-03-07 14:00] VITALS: BP 83/32; PULSE 78; RESP 18; TEMP 36.9; O2SAT 97
[2020-03-07 14:36] LABS: Glucose Point of Care 210 (65-105)
--- NOTE | 2020-03-07 15:19 | WPDANESPN ---
Anes - Prog Note Post-Op Date/Time: 03/07/20 15:19 Cardiovascular status: normal Respiratory status: normal Airway patency: baseline Mental status: baseline Post-Op hydration status: normal Vital Signs: Last Vital Signs Temp 36.9 C 03/07/20 14:00 Pulse 78 03/07/20 14:00 Resp 18 03/07/20 14:00 BP 83/32 L 03/07/20 14:00 Pulse Ox 97 03/07/20 14:00 I/O: Intake & Output 03/06/20 03/07/20 03/07/20 23:59 07:59 15:59 Intake Total 150 1200 240 Output Total 300 250 Balance -150 950 240 Laboratory Tests 03/07/20 05:57 03/07/20 05:57 03/06/20 03/06/20 03/06/20 17:46 18:08 22:08 WBC RBC Hgb 12.2 Hct 38.4 MCV MCH MCHC RDW Plt Count MPV Immature Gran % (Auto) Neut % (Auto) Lymph % (Auto) [place] % (Auto) Eos % (Auto) Baso % (Auto) Lymph # (Auto) [place] # (Auto) Eos # (Auto) Baso # (Auto) Abs Immat Gran (auto) Absolute Neuts (auto) Absolute Nucleated RBC Nucleated RBC % Sodium Potassium Chloride Carbon Dioxide BUN Creatinine Estim Creat Clear Calc Estimated GFR Glucose POC Capillary Glucose 198 H 255 H Calcium 03/07/20 03/07/20 03/07/20 05:57 05:57 09:56 WBC 10.6 H RBC 3.21 L Hgb 9.7 L Hct 30.6 L MCV 95.3 MCH 30.2 MCHC 31.7 L RDW 13.2 Plt Count 109 L MPV 10.7 H Immature Gran % (Auto) 0.4 Neut % (Auto) 82.0 H Lymph % (Auto) 9.1 L [place] % (Auto) 8.4 Eos % (Auto) 0.0 Baso % (Auto) 0.1 L Lymph # (Auto) 0.96 [place] # (Auto) 0.9 H Eos # (Auto) 0.0 Baso # (Auto) 0.0 Abs Immat Gran (auto) 0.04 H Absolute Neuts (auto) 8.7 H Absolute Nucleated RBC 0.0 Nucleated RBC % 0.0 Sodium 133 L Potassium 4.8 Chloride 103 Carbon Dioxide 22 BUN 23 H Creatinine 1.00 Estim Creat Clear Calc 35 Estimated GFR 54 L Glucose 232 H POC Capillary Glucose 153 H Calcium 8.5 03/07/20 12:37 WBC RBC Hgb Hct MCV MCH MCHC RDW Plt Count MPV Immature Gran % (Auto) Neut % (Auto) Lymph % (Auto) [place] % (Auto) Eos % (Auto) Baso % (Auto) Lymph # (Auto) [place] # (Auto) Eos # (Auto) Baso # (Auto) Abs Immat Gran (auto) Absolute Neuts (auto) Absolute Nucleated RBC Nucleated RBC % Sodium Potassium Chloride Carbon Dioxide BUN Creatinine Estim Creat Clear Calc Estimated GFR Glucose POC Capillary Glucose 210 H Calcium Post-procedural complaints: none Patient Feedback: Patient satisfied with anesthetic care.
[2020-03-07] MEDS: SODIUM CHLORIDE 0.9% IV 1,000 ML 100 ML IV CONT ×2 (15:45→21:23)
[2020-03-07 16:30] VITALS: BP 113/33
[2020-03-07 17:41] LABS: Glucose Point of Care 139 (65-105)
[2020-03-07 21:48] LABS: Glucose Point of Care 162 (65-105)
[2020-03-07 22:00] VITALS: BP 126/40; PULSE 114; RESP 16; TEMP 36.9; O2SAT 100
[2020-03-08] VITALS (9 sets, daily range): BP systolic 116–180; BP diastolic 41–118; PULSE 70–114; RESP 16–20; TEMP 36.4–37.8; O2SAT 94–100
[2020-03-08 06:37] LABS: Basophils Percent Auto 0.1 % (0.2-1.2); Eosinophils Percent Auto 0.5 % (0-4.4); Hematocrit 23.1 % (37.0-47.0); Hemoglobin 7.6 g/dL (12.0-15.0); Immature Granulocyte Absolute 0.02 K/mm3 (0.00-0.031); Immature Granulocyte Percent A 0.3 % (0-0.5); Lymphocytes Absolute Auto 1.53 K/mm3 (0.9-3.2); Lymphocytes Percent Auto 20.8 % (18.3-44.2); Mean Corpuscular HGB Conc 32.9 g/dl (32-36); Mean Corpuscular Hemoglobin 30.3 pg (26-34); Mean Platelet Volume 9.9 fl (7.4-10.4); Monocytes Absolute Auto 0.7 K/mm3 (0.1-0.6); Monocytes Percent Auto 9.2 % (2.6-8.5); Neutrophils Absolute Auto 5.1 K/mm3 (1.3-6.7); Neutrophils Percent Auto 69.1 % (45.5-73.1); Platelet Count Result 104 k/mm3 (150-375); Red Blood Count 2.51 M/mm3 (4.2-5.4); Red Cell Distribution Width 13.4 % (11.5-14.5); White Blood Count 7.4 K/mm3 (4.5-10.0)
[2020-03-08 06:52] LABS: Blood Urea Nitrogen 26 mg/dL (7-17); Calcium 7.9 mg/dL (8.4-10.2); Carbon Dioxide 24 mmol/L (22-30); Chloride 105 mmol/L (98-107); Estimated CRCL calculation 39 ml/min; Estimated Glomerular Filt Rate > 60; Glucose 126 mg/dL (65-105); Magnesium 1.8 mg/dL (1.6-2.3); Potassium 4.1 mmol/L (3.4-5.0); Sodium 134 mmol/L (137-145)
[2020-03-08] MEDS: SODIUM CHLORIDE 0.9% IV 1,000 ML 100 ML IV CONT (07:48)
[2020-03-08] MEDS: ACETAMINOPHEN 325 MG TABLET 650 MG PO ×3 (07:49→19:54)
[2020-03-08 08:14] LABS: Glucose Point of Care 119 (65-105)
--- NOTE | 2020-03-08 09:21 | PM.PNORT ---
Progress Note: A&P Assessment and Plan (1) S/P total hip arthroplasty: Qualifiers: Laterality: left Qualified Code(s): Z96.642 - Presence of left artificial hip joint Code(s): Z96.649 - Presence of unspecified artificial hip joint Status: Acute Assessment and Plan: (1) S/P total hip arthroplasty: Assessment and Plan: POD #2: LEFT JADA Requires max assist Continue PT/OT. WBAT. Walker. Fall Risk. Monitor dressing. Change POD #2. Continue to monitor limitations with dorsiflexion of the LLE. Patient requires orthosis from Loading Supervisor. Brace ordered Continue Pain control. Limit narcotics due to drowsiness. Ice lateral hip. Incentive spirometry. SCDs bilaterally. Dispo: SNF vs. [facility] when medically stable pending progress with PT/OT. Subjective Subjective Date/Time Seen: 03/08/20 09:21 Patient standing with max assist. Up to chair. Alert and oriented. Exam Const: General: comfortable and no acute distress Resp: Effort & Inspection: normal respiratory effort Cardio: Rate: regular rate Rhythm: regular rhythm GI: Inspection: non-distended Skin: General skin exam: normal color Other: Incision left hip c/d/i. Neuro: General: No gait normal Cognition (Neuro): normal cognition (drowsy ) Speech: normal speech Extrem: Left lower extremity: hip/thigh Details: tenderness Location: of the hip Location: laterally and anteriorly, swelling Location: of the hip, abnormal ROM (limited due to recent surgical intervention. ) Details: with range as follows (deferred due to surgical intervention ) and ecchymosis (lateral hip- no hematoma noted ); ROM abnormal, no crepitus and no unusual warmth, knee (old TKA incision well-healed ) Details: abnormal ROM (limited due to hip pain ); no tenderness and no swelling, lower leg (Negative Maricel's Sign ) Details: no tenderness, ankle Details: abnormal ROM (inability to dorsiflexion left foot/left hallux ) Details: no pain with active ROM and no pain with passive ROM and foot Details: normal capillary refill, abnormal ROM of toe (no dorsiflexion, flexion of toes and foot intact), vascular exam Details: dorsalis pedis pulse present and normal capillary refill, tendon exam and motor-sensory exam light-touch abnormal (decreased ) Objective Data Vital Signs Vital Signs: Vital Signs - 24 hr 03/07/20 09:51 03/07/20 14:00 03/07/20 16:30 Temperature 98.4 F Pulse Rate 78 Respiratory Rate 18 Blood Pressure 109/52 L 83/32 L 113/33 L Pulse Oximetry 97 03/07/20 22:00 03/08/20 06:00 03/08/20 07:45 Temperature 98.5 F 97.5 F L Pulse Rate 114 H 114 H Respiratory Rate 16 16 Blood Pressure 126/40 L 161/62 H 180/70 H Pulse Oximetry 100 97 03/08/20 07:46 Temperature Pulse Rate Respiratory Rate Blood Pressure Pulse Oximetry 94 Intake/Output Intake/Output: Intake & Output 03/05/20 03/06/20 03/07/20 03/08/20 23:59 23:59 23:59 23:59 Intake Total 7412 411 4449 1120 Output Total 2000 800 250 200 Balance -670 -200 2535 920 Meds/Results Medications: Active Medications Generic Name Dose Route Start Last Admin Trade Name Freq PRN Reason Stop Dose Admin Acetaminophen 650 mg 03/04/20 15:33 03/08/20 07:49 Tylenol Tablet PO 650 mg Q6H PRN Administration Mild Pain (1-3) or Fever Hydrocodone Bitart/Acetaminophen 1 tab 03/05/20 10:45 03/06/20 03:03 [place] 5-325 Mg PO 1 tab Q6H PRN Administration Pain Rated 4-6 Aspirin 81 mg 03/07/20 09:00 03/07/20 11:58 Aspirin Ec PO 81 mg DAILY CAMI Administration Carbidopa/Levodopa 1 tablet 03/04/20 09:00 03/07/20 21:21 Sinemet 25/100 Mg PO 1 tablet QID CAMI Administration Clopidogrel Bisulfate 75 mg 03/07/20 09:00 03/07/20 11:58 Plavix PO 75 mg DAILY CAMI Administration Dextrose 12.5 gm 03/04/20 10:30 Dextrose 50% Syringe IV PUSH PRN PRN Hypoglycemia Protocol Docusate Sodium 100 mg 03/06/20 17:52 03/07/20 17:33 Colace Capsu
--- NOTE | 2020-03-08 10:12 | P.PNIM_ITS ---
Progress Note: A&P Assessment and Plan (1) Fracture of hip, left, closed: Qualifiers: Encounter type: initial encounter Qualified Code(s): S72.002A - Fracture of unspecified part of neck of left femur, initial encounter for closed fracture Code(s): S72.002A - Fracture of unspecified part of neck of left femur, initial encounter for closed fracture Status: Acute Assessment and Plan: * Patient presents with acute left subcapital femoral fracture after a fall at home. * POD#2 left total hip arthroplasty 7/ by Dr Agrawal and Dr Barron. EBL 1000mL per the op note, monitor H&H. * Wound care, pain control, and DVT prophylaxis postoperatively per ortho recommendations. (2) Postoperative confusion: Code(s): R41.0 - Disorientation, unspecified Status: Acute Assessment and Plan: * Patient was very confused and agitated the evening after surgery, now slowly improving. This morning she is oriented to self, place, and time but she does have a bit of nonsensical speech and word-searching. * Discussed at length with her at bedside. Appreciate neurology consultation. CT brain on arrival after her fall shows no acute intracranial findings. * Avoid narcotics if possible. (3) Anemia: Qualifiers: Anemia type: unspecified type Qualified Code(s): D64.9 - Anemia, unspecified Code(s): D64.9 - Anemia, unspecified Status: Acute Assessment and Plan: * Postoperative anemia with EBL 1,000mL during surgery. No evidence of ongoing bleeding now. Continue to monitor H&H and transfuse PRN. (4) Neck pain: Code(s): M54.2 - Cervicalgia Status: Acute Assessment and Plan: * CT C-spine does not show any acute fracture. CT brain shows no acute findings. Supportive care. (5) CAD (coronary artery disease): Qualifiers: Associated angina: without angina Coronary Disease-Associated Artery/Lesion type: [place] artery [place] vs. transplanted heart: [place] heart Qualified Code(s): I25.10 - Atherosclerotic heart disease of [place] coronary artery without angina pectoris Code(s): I25.10 - Atherosclerotic heart disease of [place] coronary artery without angina pectoris Status: Chronic Assessment and Plan: * History of CAD with coronary stent to RCA in 2018. Her head of talent management is Dr Siddiqi in [place]. She has been seen here by Dr Silverman. Plavix and ASA resumed. (6) Parkinsons disease: Code(s): G20 - Parkinson's disease Status: Acute Assessment and Plan: * Continue patient's home Sinemet. I presume her diagnosis is contributing to slower cognitive reaction after anesthesia and pain medications in the postoperative period. * Her neurologist is Dr Feldman. * PT/OT. (7) Hypertension: Qualifiers: Hypertension type: essential hypertension Qualified Code(s): I10 - Essential (primary) hypertension Code(s): I10 - Essential (primary) hypertension Status: Acute Assessment and Plan: * Was hypotensive yesterday likely secondary to hypovolemia. Lisinopril and metoprolol were held yesterday, BPs elevated this AM. * Resume her home lisinopril and metoprolol today. Will monitor and adjust treatment as needed. Improved from this morning. Subjective Date/time seen: 03/08/20 0930 Interval history: Ms. Kaufman is a 74yo F ad
--- NOTE | 2020-03-08 10:12 | PM.IMPN ---
Progress Note: A&P Assessment and Plan (1) Fracture of hip, left, closed: Qualifiers: Encounter type: initial encounter Qualified Code(s): S72.002A - Fracture of unspecified part of neck of left femur, initial encounter for closed fracture Code(s): S72.002A - Fracture of unspecified part of neck of left femur, initial encounter for closed fracture Status: Acute Assessment and Plan: Patient presents with acute left subcapital femoral fracture after a fall at home. POD#2 left total hip arthroplasty 7/ by Dr Agrawal and Dr Barron. EBL 1000mL per the op note, monitor H&H. Wound care, pain control, and DVT prophylaxis postoperatively per ortho recommendations. (2) Postoperative confusion: Code(s): R41.0 - Disorientation, unspecified Status: Acute Assessment and Plan: Patient was very confused and agitated the evening after surgery, now slowly improving. This morning she is oriented to self, place, and time but she does have a bit of nonsensical speech and word-searching. Discussed at length with her at bedside. Appreciate neurology consultation. CT brain on arrival after her fall shows no acute intracranial findings. Avoid narcotics if possible. (3) Anemia: Qualifiers: Anemia type: unspecified type Qualified Code(s): D64.9 - Anemia, unspecified Code(s): D64.9 - Anemia, unspecified Status: Acute Assessment and Plan: Postoperative anemia with EBL 1,000mL during surgery. No evidence of ongoing bleeding now. Continue to monitor H&H and transfuse PRN. (4) Neck pain: Code(s): M54.2 - Cervicalgia Status: Acute Assessment and Plan: CT C-spine does not show any acute fracture. CT brain shows no acute findings. Supportive care. (5) CAD (coronary artery disease): Qualifiers: Associated angina: without angina Coronary Disease-Associated Artery/Lesion type: [place] artery [place] vs. transplanted heart: [place] heart Qualified Code(s): I25.10 - Atherosclerotic heart disease of [place] coronary artery without angina pectoris Code(s): I25.10 - Atherosclerotic heart disease of [place] coronary artery without angina pectoris Status: Chronic Assessment and Plan: History of CAD with coronary stent to RCA in 2018. Her billing customer service representative is Dr Siddiqi in [place]. She has been seen here by Dr Silverman. Plavix and ASA resumed. (6) Parkinsons disease: Code(s): G20 - Parkinson's disease Status: Acute Assessment and Plan: Continue patient's home Sinemet. I presume her diagnosis is contributing to slower cognitive reaction after anesthesia and pain medications in the postoperative period. Her neurologist is Dr Feldman. PT/OT. (7) Hypertension: Qualifiers: Hypertension type: essential hypertension Qualified Code(s): I10 - Essential (primary) hypertension Code(s): I10 - Essential (primary) hypertension Status: Acute Assessment and Plan: Was hypotensive yesterday likely secondary to hypovolemia. Lisinopril and metoprolol were held yesterday, BPs elevated this AM. Resume her home lisinopril and metoprolol today. Will monitor and adjust treatment as needed. Improved from this morning. Subjective Date/time seen: 03/08/20 0930 Interval history: Ms. Kaufman is a 74yo F admitted for left hip fracture after a fall at home seen in follow up this morning POD#2 s/p left total hip arthroplasty. At time of my exam she is sitting up in bedside chair finishing up breakfast and notes left hip pain. She is a little less confused this morning than yesterday. She denies any chest pain or shortness of breath. She denies nausea or abdominal pain, however I am notified by nursing this afterno
[2020-03-08] MEDS: MAGNESIUM OXIDE 400 MG TABLET PO (10:36)
[2020-03-08] MEDS: FONDAPARINUX SODIUM 2.5 MG/0.5 ML SYRINGE SUB-Q (10:36)
[2020-03-08] MEDS: lisinopriL 10 MG TABLET PO (10:36)
[2020-03-08] MEDS: EZETIMIBE 10 MG TABLET PO (10:37)
[2020-03-08] MEDS: METOPROLOL TARTRATE 50 MG TAB PO ×2 (10:37→21:04)
[2020-03-08] MEDS: DOCUSATE SODIUM 100 MG CAPSULE PO ×2 (10:37→18:23)
[2020-03-08] MEDS: GABAPENTIN 100 MG CAPSULE PO ×3 (10:37→18:23)
[2020-03-08] MEDS: FUROSEMIDE 20 MG TABLET PO (10:37)
[2020-03-08] MEDS: CARBIDOPA/LEVODOPA 25/100 MG TABLET 1 TABLET PO ×4 (10:38→20:16)
[2020-03-08] MEDS: CLOPIDOGREL BISULFATE 75 MG TABLET PO (10:38)
[2020-03-08] MEDS: ASPIRIN 81 MG ENTERIC TABLET PO (10:39)
--- NOTE | 2020-03-08 10:40 | ECG_ITS ---
Measurements Intervals [place] Rate: 75 P: 63 [place]: 167 QRS: 54 QRSD: 86 T: 37 QT: 364 QTc: 408 Interpretive Statements SINUS RHYTHM NORMAL ECG Electronically Signed On 03-08-2020 11:38:10 CDT by Willi Navarrete D.O.
[2020-03-08 12:08] LABS: Glucose Point of Care 170 (65-105)
[2020-03-08 13:11] LABS: Hematocrit 23.8 % (37.0-47.0); Hemoglobin 7.7 g/dL (12.0-15.0)
[2020-03-08] MEDS: ONDANSETRON INJ 4 MG/2 ML VIAL IV PUSH (14:34)
[2020-03-08 18:33] LABS: Glucose Point of Care 154 (65-105)
[2020-03-08] MEDS: SODIUM CHLORIDE 0.9% IV 1,000 ML 75 ML IV CONT (20:22)
[2020-03-09] VITALS (7 sets, daily range): BP systolic 130–143; BP diastolic 42–59; PULSE 88–107; RESP 16–20; TEMP 36.4–38; O2SAT 97–100; BMI 11.0
[2020-03-09 04:06] LABS: Glucose Point of Care 165 (65-105)
--- NOTE | 2020-03-09 04:15 | PC.NURSE ---
2004 Patient was orientated to self only. So I reorientated her to time and place. A little while later I asked her the time and place and she was able to answer them correctly.
[2020-03-09] MEDS: ACETAMINOPHEN 325 MG TABLET 650 MG PO ×3 (05:51→22:10)
[2020-03-09 08:58] LABS: Glucose Point of Care 158 (65-105)
[2020-03-09] MEDS: CARBIDOPA/LEVODOPA 25/100 MG TABLET 1 TABLET PO (09:56)
[2020-03-09] MEDS: ASPIRIN 81 MG ENTERIC TABLET PO (09:56)
[2020-03-09] MEDS: FONDAPARINUX SODIUM 2.5 MG/0.5 ML SYRINGE SUB-Q (09:56)
[2020-03-09] MEDS: DOCUSATE SODIUM 100 MG CAPSULE PO ×2 (09:57→17:15)
[2020-03-09] MEDS: EZETIMIBE 10 MG TABLET PO (09:57)
[2020-03-09] MEDS: CLOPIDOGREL BISULFATE 75 MG TABLET PO (09:57)
[2020-03-09] MEDS: GABAPENTIN 100 MG CAPSULE PO ×3 (09:58→17:15)
[2020-03-09] MEDS: FUROSEMIDE 20 MG TABLET PO (09:58)
[2020-03-09] MEDS: SODIUM CHLORIDE 0.9% IV 1,000 ML 75 ML IV CONT ×2 (10:01→22:09)
[2020-03-09] MEDS: METOPROLOL TARTRATE 50 MG TAB PO ×2 (10:02→22:09)
[2020-03-09] MEDS: MAGNESIUM OXIDE 400 MG TABLET PO (10:02)
--- NOTE | 2020-03-09 10:12 | P.PNIM_ITS ---
Progress Note: A&P Assessment and Plan (1) Fracture of hip, left, closed: Qualifiers: Encounter type: initial encounter Qualified Code(s): S72.002A - Fracture of unspecified part of neck of left femur, initial encounter for closed fracture Code(s): S72.002A - Fracture of unspecified part of neck of left femur, initial encounter for closed fracture Status: Acute Assessment and Plan: * Patient presents with acute left subcapital femoral fracture after a fall at home. * POD#3 left total hip arthroplasty 7/ by Dr Agrawal and Dr Barron. EBL 1000mL per the op note, monitor H&H. * Wound care, pain control, and DVT prophylaxis postoperatively per ortho recommendations. (2) Postoperative confusion: Code(s): R41.0 - Disorientation, unspecified Status: Acute Assessment and Plan: * Patient was very confused and agitated the evening after surgery, was slowly improving but still confused this morning. * Discussed at length with her at bedside yesterday. Appreciate neurology consultation. CT brain on arrival after her fall shows no acute intracranial findings. * Avoid narcotics if possible. Can repeat CT brain today. (3) Anemia: Qualifiers: Anemia type: unspecified type Qualified Code(s): D64.9 - Anemia, unspecified Code(s): D64.9 - Anemia, unspecified Status: Acute Assessment and Plan: * Postoperative anemia with EBL 1,000mL during surgery. No evidence of ongoing bleeding now. * H&H is low. Labs from this morning are still pending. Transfuse as needed. Edit: Hgb 7.1; will monitor and transfuse if she drops below 7. (4) CAD (coronary artery disease): Qualifiers: Associated angina: without angina Coronary Disease-Associated Artery/Lesion type: [place] artery [place] vs. transplanted heart: [place] heart Qualified Code(s): I25.10 - Atherosclerotic heart disease of [place] coronary artery without angina pectoris Code(s): I25.10 - Atherosclerotic heart disease of [place] coronary artery without angina pectoris Status: Chronic Assessment and Plan: * History of CAD with coronary stent to RCA in 2018. Her home worker is Dr Siddiqi in [place]. She has been seen here by Dr Silverman. Plavix and ASA resu med. (5) Parkinsons disease: Code(s): G20 - Parkinson's disease Status: Acute Assessment and Plan: * Continue patient's home Sinemet. I presume her diagnosis is contributing to slower cognitive reaction after anesthesia and pain medications in the postoperative period. * Her neurologist is Dr Feldman. Appreciate neurology consultation. * PT/OT. (6) Hypertension: Qualifiers: Hypertension type: essential hypertension Qualified Code(s): I10 - Essential (primary) hypertension Code(s): I10 - Essential (primary) hypertension Status: Acute Assessment and Plan: * Last 143/59. Continue home metoprolol and lisinopril. Will monitor and adjust treatment as needed. Subjective Date/time seen: 03/09/20 0900 Interval history: Ms. Kaufman is a 74yo F admitted for left hip fracture after a fall at home seen in follow up this morning POD#3 s/p left total hip arthroplasty. At time of my exam she is sitting up in bedside chair, complains of left hip pain. She is still confused today. She reports feeling a little short of breath. She reports nausea without abdominal pain. She denies
--- NOTE | 2020-03-09 10:12 | PM.IMPN ---
Progress Note: A&P Assessment and Plan (1) Fracture of hip, left, closed: Qualifiers: Encounter type: initial encounter Qualified Code(s): S72.002A - Fracture of unspecified part of neck of left femur, initial encounter for closed fracture Code(s): S72.002A - Fracture of unspecified part of neck of left femur, initial encounter for closed fracture Status: Acute Assessment and Plan: Patient presents with acute left subcapital femoral fracture after a fall at home. POD#3 left total hip arthroplasty 7/ by Dr Agrawal and Dr Barron. EBL 1000mL per the op note, monitor H&H. Wound care, pain control, and DVT prophylaxis postoperatively per ortho recommendations. (2) Postoperative confusion: Code(s): R41.0 - Disorientation, unspecified Status: Acute Assessment and Plan: Patient was very confused and agitated the evening after surgery, was slowly improving but still confused this morning. Discussed at length with her at bedside yesterday. Appreciate neurology consultation. CT brain on arrival after her fall shows no acute intracranial findings. Avoid narcotics if possible. Can repeat CT brain today. (3) Anemia: Qualifiers: Anemia type: unspecified type Qualified Code(s): D64.9 - Anemia, unspecified Code(s): D64.9 - Anemia, unspecified Status: Acute Assessment and Plan: Postoperative anemia with EBL 1,000mL during surgery. No evidence of ongoing bleeding now. H&H is low. Labs from this morning are still pending. Transfuse as needed. Edit: Hgb 7.1; will monitor and transfuse if she drops below 7. (4) CAD (coronary artery disease): Qualifiers: Associated angina: without angina Coronary Disease-Associated Artery/Lesion type: [place] artery [place] vs. transplanted heart: [place] heart Qualified Code(s): I25.10 - Atherosclerotic heart disease of [place] coronary artery without angina pectoris Code(s): I25.10 - Atherosclerotic heart disease of [place] coronary artery without angina pectoris Status: Chronic Assessment and Plan: History of CAD with coronary stent to RCA in 2018. Her aerophysicist is Dr Siddiqi in [place]. She has been seen here by Dr Silverman. Plavix and ASA resumed. (5) Parkinsons disease: Code(s): G20 - Parkinson's disease Status: Acute Assessment and Plan: Continue patient's home Sinemet. I presume her diagnosis is contributing to slower cognitive reaction after anesthesia and pain medications in the postoperative period. Her neurologist is Dr Feldman. Appreciate neurology consultation. PT/OT. (6) Hypertension: Qualifiers: Hypertension type: essential hypertension Qualified Code(s): I10 - Essential (primary) hypertension Code(s): I10 - Essential (primary) hypertension Status: Acute Assessment and Plan: Last 143/59. Continue home metoprolol and lisinopril. Will monitor and adjust treatment as needed. Subjective Date/time seen: 03/09/20 0900 Interval history: Ms. Kaufman is a 74yo F admitted for left hip fracture after a fall at home seen in follow up this morning POD#3 s/p left total hip arthroplasty. At time of my exam she is sitting up in bedside chair, complains of left hip pain. She is still confused today. She reports feeling a little short of breath. She reports nausea without abdominal pain. She denies chest pain. Review of Systems Review of Systems: Narrative: Twelve systems were reviewed with pertinent positives and negatives as per HPI. Except as documented, all other systems were reviewed and are negative. Exam Narrative: Exam Narrative: General: Patient resting sitting up in bedside chair in no acute distress. Neuro: Awake and alert, oriented to self, when a
[2020-03-09 11:04] LABS: Alanine Aminotransferase 33 U/L (4-35); Albumin Level 3.1 g/dL (3.5-5.1); Alkaline Phosphatase 129 U/L (38-126); Ammonia < 9 umol/L (9-30); Aspartate Amino Transferase 124 U/L (14-36); Bilirubin,Total 0.7 mg/dL (0.2-1.3); Blood Urea Nitrogen 34 mg/dL (7-17); Calcium 8.1 mg/dL (8.4-10.2); Carbon Dioxide 23 mmol/L (22-30); Chloride 105 mmol/L (98-107); Estimated CRCL calculation 27 ml/min; Estimated Glomerular Filt Rate 40; Glucose 240 mg/dL (65-105); Lipase 36 U/L (23-300); Magnesium 2.2 mg/dL (1.6-2.3); Phosphorus 3.6 mg/dL (2.5-4.5); Potassium 4.6 mmol/L (3.4-5.0); Sodium 134 mmol/L (137-145)
[2020-03-09] MEDS: lisinopriL 10 MG TABLET PO (12:29)
[2020-03-09 13:00] LABS: Basophils Percent Auto 0.1 % (0.2-1.2); Eosinophils Percent Auto 0.1 % (0-4.4); Hematocrit 22.3 % (37.0-47.0); Hemoglobin 7.1 g/dL (12.0-15.0); Immature Granulocyte Absolute 0.05 K/mm3 (0.00-0.031); Immature Granulocyte Percent A 0.5 % (0-0.5); Lymphocytes Absolute Auto 0.58 K/mm3 (0.9-3.2); Lymphocytes Percent Auto 6.3 % (18.3-44.2); Mean Corpuscular HGB Conc 31.8 g/dl (32-36); Mean Corpuscular Hemoglobin 30.2 pg (26-34); Mean Corpuscular Volume 94.9 fl (80-100); Mean Platelet Volume 9.9 fl (7.4-10.4); Monocytes Absolute Auto 0.5 K/mm3 (0.1-0.6); Monocytes Percent Auto 5.5 % (2.6-8.5); Neutrophils Percent Auto 87.5 % (45.5-73.1); Platelet Count Result 122 k/mm3 (150-375); Red Blood Count 2.35 M/mm3 (4.2-5.4); Red Cell Distribution Width 13.7 % (11.5-14.5); White Blood Count 9.2 K/mm3 (4.5-10.0)
--- NOTE | 2020-03-09 13:30 | CONS_ITS ---
DATE OF CONSULTATION: Patient of Dr. Alyssia Khan. HISTORY OF PRESENT ILLNESS: A 74-year-old lady, has been admitted to [facility] through the emergency room subsequent to fall while she was cleaning up her kitchen and her foot slipped and she fell backward with no documented head trauma, but she landed on her left hip and developed immediate pain and was unable to get up from the floor. She did not become unconscious. Did not sustain any trauma to head and neck, but her neck was stiff and tender. She has also noted increasing urinary frequency. In the past, she has ongoing history of: 1. Distant coronary artery disease. 2. Parkinson disease. 3. Hypertension. 4. Peripheral neuropathy. LABORATORY DATA: Evaluation up until now includes basic metabolic panel with sodium 134, potassium 4.6, chloride 105, CO2 of 23, BUN 34, creatinine 1.3, GFR only 40, glucose 240, calcium 8.1, AST 124, alkaline phos 129, ammonia level less than 9, total protein 6 with albumin 3.1. Hip and pelvic x-rays, acute subcapital left femur neck fracture. The chest x-ray negative. Cervical spine CT scan with advanced C5-C7 spondylosis with left-sided cervical facet arthropathy, but no acute changes and no evidence of the cervical myelopathy secondary to stenosis. Head CT scan negative and repeat hip x-rays, left total hip arthroplasty in anatomical alignment. The patient is being followed by the Orthopedics, have been seen by the line ordering clinician preoperatively with only documentation of the hypertension, coronary artery disease in addition to history of paroxysmal supraventricular tachycardia. She has been documented to have Parkinson disease as well. PHYSICAL EXAMINATION: GENERAL: Today, she is awake, alert, follows the verbal commands appropriately. HEENT: Head normocephalic with no cranial bruit. Ear, nose, throat examination normal. NECK: Supple with mild decrease in range of motion, but no meningeal irritation. No cervical bruit. HEART: Regular. LUNGS: Clear. No crepitation. ABDOMEN: Soft. NEUROLOGICAL: She is awake, alert, difficulties in recent and remote recall. Pupils round, regular. [place] of vision full. Extraocular movements full. Face symmetrical. Tongue midline. Uvula midline. Motor examination revealed her to have decreased strength, sluggish reflexes, downgoing plantar responses, but increased tone with cogwheeling bilaterally. At this stage, the patient is receiving carbidopa/levodopa 1 tab q.i.d. in addition to all other medications. I will simply adjust the carbidopa/levodopa dosage to 25/250 three times a day and further adjustment will be made accordingly. ESTEFANIA MASTERSON M.D. [facility] STATION GATEMAN D I MT: [place]
[2020-03-09] MEDS: INSULIN ASPART (*BKC) 100 UNITS/ML SUB-Q (14:59)
[2020-03-09] MEDS: CARBIDOPA/LEVODOPA 25/250 MG TABLET 1 TABLET PO ×2 (15:52→23:25)
[2020-03-09 15:57] LABS: Glucose Point of Care 224 (65-105)
[2020-03-09 15:57] LABS: Glucose Point of Care 212 (65-105)
[2020-03-09 18:48] LABS: Glucose Point of Care 153 (65-105)
[2020-03-10 00:59] LABS: Glucose Point of Care 162 (65-105)
[2020-03-10] MEDS: CARBIDOPA/LEVODOPA 25/250 MG TABLET 1 TABLET PO ×3 (05:30→20:47)
[2020-03-10 05:51] LABS: Basophils Percent Auto 0.2 % (0.2-1.2); Eosinophils Absolute Auto 0.1 K/mm3 (0-0.3); Eosinophils Percent Auto 0.9 % (0-4.4); Hematocrit 22.6 % (37.0-47.0); Hemoglobin 7.2 g/dL (12.0-15.0); Immature Granulocyte Absolute 0.06 K/mm3 (0.00-0.031); Immature Granulocyte Percent A 0.5 % (0-0.5); Lymphocytes Absolute Auto 1.61 K/mm3 (0.9-3.2); Lymphocytes Percent Auto 13.9 % (18.3-44.2); Mean Corpuscular HGB Conc 31.9 g/dl (32-36); Mean Corpuscular Hemoglobin 30.1 pg (26-34); Mean Corpuscular Volume 94.6 fl (80-100); Monocytes Absolute Auto 0.8 K/mm3 (0.1-0.6); Monocytes Percent Auto 6.6 % (2.6-8.5); Neutrophils Absolute Auto 9.1 K/mm3 (1.3-6.7); Neutrophils Percent Auto 77.9 % (45.5-73.1); Platelet Count Result 158 k/mm3 (150-375); Red Blood Count 2.39 M/mm3 (4.2-5.4); Red Cell Distribution Width 13.7 % (11.5-14.5); White Blood Count 11.6 K/mm3 (4.5-10.0)
[2020-03-10 06:00] VITALS: BP 116/51; PULSE 100; RESP 16; TEMP 36.8; O2SAT 95
[2020-03-10 06:03] LABS: Blood Urea Nitrogen 36 mg/dL (7-17); Carbon Dioxide 24 mmol/L (22-30); Chloride 108 mmol/L (98-107); Estimated CRCL calculation 35 ml/min; Estimated Glomerular Filt Rate 54; Glucose 136 mg/dL (65-105); Magnesium 2.3 mg/dL (1.6-2.3); Sodium 134 mmol/L (137-145)
[2020-03-10 08:14] LABS: Glucose Point of Care 116 (65-105)
[2020-03-10] MEDS: ONDANSETRON INJ 4 MG/2 ML VIAL IV PUSH (08:48)
--- NOTE | 2020-03-10 10:19 | P.PNIM_ITS ---
Progress Note: A&P Assessment and Plan (1) Fracture of hip, left, closed: Qualifiers: Encounter type: initial encounter Qualified Code(s): S72.002A - Fracture of unspecified part of neck of left femur, initial encounter for closed fracture Code(s): S72.002A - Fracture of unspecified part of neck of left femur, initial encounter for closed fracture Status: Acute Assessment and Plan: * Patient presents with acute left subcapital femoral fracture after a fall at home. * POD#4 left total hip arthroplasty 7/ by Dr Agrawal and Dr Barron. EBL 1000mL per the op note, monitor H&H. * Wound care, pain control, and DVT prophylaxis postoperatively per ortho recommendations. (2) Postoperative confusion: Code(s): R41.0 - Disorientation, unspecified Status: Acute Assessment and Plan: * Patient was very confused and agitated the evening after surgery, slowly improving and much less confused this morning. Waxing and waning. * Appreciate neurology consultation. CT brain on arrival after her fall shows no acute intracranial findings. Repeat CT brain 03/09 shows no change. * Continue avoiding narcotics if possible. (3) Anemia: Qualifiers: Anemia type: unspecified type Qualified Code(s): D64.9 - Anemia, unspecified Code(s): D64.9 - Anemia, unspecified Status: Acute Assessment and Plan: * Postoperative anemia with EBL 1,000mL during surgery. No evidence of ongoing bleeding now. * H&H is low; continue to monitor H&H and transfuse PRN if Hgb drops below 7. (4) CAD (coronary artery disease): Qualifiers: Associated angina: without angina Coronary Disease-Associated Artery/Lesion type: [place] artery [place] vs. transplanted heart: [place] heart Qualified Code(s): I25.10 - Atherosclerotic heart disease of [place] coronary artery without angina pectoris Code(s): I25.10 - Atherosclerotic heart disease of [place] coronary artery without angina pectoris Status: Chronic Assessment and Plan: * History of CAD with coronary stent to RCA in 2018. Her engraver letter is Dr Siddiqi in [place]. She has been seen here by Dr Silverman. Plavix and ASA resumed. (5) Parkinsons disease: Code(s): G20 - Parkinson's disease Status: Acute Assessment and Plan: * Continue patient's home Sinemet. I presume her diagnosis is contributing to slower cognitive reaction in the postoperative period. * Her neurologist is Dr Feldman. Appreciate neurology consultation. * PT/OT. (6) Hypertension: Qualifiers: Hypertension type: essential hypertension Qualified Code(s): I10 - Essential (primary) hypertension Code(s): I10 - Essential (primary) hypertension Status: Acute Assessment and Plan: * Last . Continue home metoprolol and lisinopril. Will monitor BP and adjust treatment as needed. Subjective Date/time seen: 03/10/20 0915 Interval history: Ms. Kaufman is a 74yo F admitted for left hip fracture after a fall at home seen in follow up this morning POD#4 s/p left total hip arthroplasty. She is resting comfortably in bed sitting up eating breakfast. She is much more awake and alert compared to yesterday, not as confused. She denies abdominal pain or nausea today. She denies chest pain or shortness of breath. Review of Systems Review of Systems: Narrative: Twelve systems were reviewed with pertinent
--- NOTE | 2020-03-10 10:19 | PM.IMPN ---
Progress Note: A&P Assessment and Plan (1) Fracture of hip, left, closed: Qualifiers: Encounter type: initial encounter Qualified Code(s): S72.002A - Fracture of unspecified part of neck of left femur, initial encounter for closed fracture Code(s): S72.002A - Fracture of unspecified part of neck of left femur, initial encounter for closed fracture Status: Acute Assessment and Plan: Patient presents with acute left subcapital femoral fracture after a fall at home. POD#4 left total hip arthroplasty 7/ by Dr Agrawal and Dr Barron. EBL 1000mL per the op note, monitor H&H. Wound care, pain control, and DVT prophylaxis postoperatively per ortho recommendations. (2) Postoperative confusion: Code(s): R41.0 - Disorientation, unspecified Status: Acute Assessment and Plan: Patient was very confused and agitated the evening after surgery, slowly improving and much less confused this morning. Waxing and waning. Appreciate neurology consultation. CT brain on arrival after her fall shows no acute intracranial findings. Repeat CT brain 03/09 shows no change. Continue avoiding narcotics if possible. (3) Anemia: Qualifiers: Anemia type: unspecified type Qualified Code(s): D64.9 - Anemia, unspecified Code(s): D64.9 - Anemia, unspecified Status: Acute Assessment and Plan: Postoperative anemia with EBL 1,000mL during surgery. No evidence of ongoing bleeding now. H&H is low; continue to monitor H&H and transfuse PRN if Hgb drops below 7. (4) CAD (coronary artery disease): Qualifiers: Associated angina: without angina Coronary Disease-Associated Artery/Lesion type: [place] artery [place] vs. transplanted heart: [place] heart Qualified Code(s): I25.10 - Atherosclerotic heart disease of [place] coronary artery without angina pectoris Code(s): I25.10 - Atherosclerotic heart disease of [place] coronary artery without angina pectoris Status: Chronic Assessment and Plan: History of CAD with coronary stent to RCA in 2018. Her certified lactation educator is Dr Siddiqi in [place]. She has been seen here by Dr Silverman. Plavix and ASA resumed. (5) Parkinsons disease: Code(s): G20 - Parkinson's disease Status: Acute Assessment and Plan: Continue patient's home Sinemet. I presume her diagnosis is contributing to slower cognitive reaction in the postoperative period. Her neurologist is Dr Feldman. Appreciate neurology consultation. PT/OT. (6) Hypertension: Qualifiers: Hypertension type: essential hypertension Qualified Code(s): I10 - Essential (primary) hypertension Code(s): I10 - Essential (primary) hypertension Status: Acute Assessment and Plan: Last 116/51. Continue home metoprolol and lisinopril. Will monitor BP and adjust treatment as needed. Subjective Date/time seen: 03/10/20 0915 Interval history: Ms. Kaufman is a 74yo F admitted for left hip fracture after a fall at home seen in follow up this morning POD#4 s/p left total hip arthroplasty. She is resting comfortably in bed sitting up eating breakfast. She is much more awake and alert compared to yesterday, not as confused. She denies abdominal pain or nausea today. She denies chest pain or shortness of breath. Review of Systems Review of Systems: Narrative: Twelve systems were reviewed with pertinent positives and negatives as per HPI. Exam Narrative: Exam Narrative: General: Patient resting in bed eating breakfast in no acute distress. Neuro: Awake and alert, oriented to self, place, and month. She is able to tell me yesterday was the 09 of March. HEENT: Normocephalic, EOMI, PERRL, oral mucosa moist. Cardiovascular: Rate and rhythm are regular. Respiratory: Lungs cl
[2020-03-10] MEDS: ACETAMINOPHEN 325 MG TABLET 650 MG PO ×2 (10:20→17:54)
[2020-03-10] MEDS: MAGNESIUM OXIDE 400 MG TABLET PO (10:21)
[2020-03-10] MEDS: FUROSEMIDE 20 MG TABLET PO (10:21)
[2020-03-10] MEDS: ASPIRIN 81 MG ENTERIC TABLET PO (10:21)
[2020-03-10] MEDS: GABAPENTIN 100 MG CAPSULE PO ×3 (10:21→17:55)
[2020-03-10] MEDS: DOCUSATE SODIUM 100 MG CAPSULE PO ×2 (10:22→17:55)
[2020-03-10] MEDS: CLOPIDOGREL BISULFATE 75 MG TABLET PO (10:22)
[2020-03-10] MEDS: EZETIMIBE 10 MG TABLET PO (10:22)
[2020-03-10] MEDS: lisinopriL 10 MG TABLET PO (10:22)
[2020-03-10] MEDS: FONDAPARINUX SODIUM 2.5 MG/0.5 ML SYRINGE SUB-Q (10:22)
[2020-03-10 10:23] VITALS: PULSE 84
[2020-03-10] MEDS: METOPROLOL TARTRATE 50 MG TAB PO ×2 (10:23→20:47)
[2020-03-10 10:40] LABS: Add Urine Microscopic? YES; Appearance Urine Clear (Clear); Bilirubin Urine Negative (Negative); Blood Urine 2+ (Negative); Color Urine Yellow (Yellow); Glucose Urine UA Negative (Negative); Ketones Urine Negative (Negative); Leukocyte Esterase Ur Negative LEU/UL (Negative); Mucus Urine Rare /lpf; Nitrate Urine Negative (Negative); Protein Urine Negative (Negative); Specific Grav Ur 1.018 (1.001-1.035); Squamous Epithelial Cell Urine Rare /hpf (Few); Urobilinogen Urine Negative mg/dL (<2.0)
[2020-03-10 12:45] LABS: Glucose Point of Care 140 (65-105)
--- NOTE | 2020-03-10 13:17 | WPDNEUROPN ---
Progress Note: A&P Assessment and Plan (1) Postoperative confusion: Code(s): R41.0 - Disorientation, unspecified Status: Acute (2) Anemia: Qualifiers: Anemia type: unspecified type Qualified Code(s): D64.9 - Anemia, unspecified Code(s): D64.9 - Anemia, unspecified Status: Acute (3) Hypotension: Qualifiers: Hypotension type: unspecified hypotension type Qualified Code(s): I95.9 - Hypotension, unspecified Code(s): I95.9 - Hypotension, unspecified Status: Acute (4) S/P total hip arthroplasty: Qualifiers: Laterality: left Qualified Code(s): Z96.642 - Presence of left artificial hip joint Code(s): Z96.649 - Presence of unspecified artificial hip joint Status: Acute (5) Diabetes: Code(s): E11.9 - Type 2 diabetes mellitus without complications Status: Acute (6) CAD (coronary artery disease): Qualifiers: Coronary Disease-Associated Artery/Lesion type: [place] artery [place] vs. transplanted heart: [place] heart Associated angina: without angina Qualified Code(s): I25.10 - Atherosclerotic heart disease of [place] coronary artery without angina pectoris Code(s): I25.10 - Atherosclerotic heart disease of [place] coronary artery without angina pectoris Status: Chronic (7) Preoperative cardiovascular examination: Code(s): Z01.810 - Encounter for preprocedural cardiovascular examination Status: Acute (8) Hypertension: Qualifiers: Hypertension type: essential hypertension Qualified Code(s): I10 - Essential (primary) hypertension Code(s): I10 - Essential (primary) hypertension Status: Acute (9) Neck pain: Code(s): M54.2 - Cervicalgia Status: Acute (10) Parkinsons disease: Code(s): G20 - Parkinson's disease Status: Acute (11) Fracture of hip, left, closed: Qualifiers: Encounter type: initial encounter Qualified Code(s): S72.002A - Fracture of unspecified part of neck of left femur, initial encounter for closed fracture Code(s): S72.002A - Fracture of unspecified part of neck of left femur, initial encounter for closed fracture Status: Acute Additional Plan stable and improving Review of Systems Review of Systems: All systems reviewed & are unremarkable except as noted in HPI and below Exam Const: General: cooperative, comfortable, no acute distress and alert Orientation/consciousness: oriented to person HENMT: General nose exam: Normal external nose present and No nasal discharge present Face and sinus: normal facial exam Mouth: Yes Normal oral and palatal mucosa present Eyes: General: appearance normal, both eyes and all related structures Visual Torre: normal visual torre by confrontation Periorbital: periorbital findings normal Eyelids: eyelids normal Conjunctivae: conjunctivae normal Sclera: sclerae normal Cornea: corneas normal Pupils: Equal, round and reactive pupils present EOM: EOMs intact bilaterally Neck: Neck: full ROM Resp: Effort & Inspection: normal respiratory effort Cardio: Rhythm: regular rhythm Skin: General skin exam: no rashes or lesions noted Neuro: General: oriented to person and oriented to place Cranial nerves: Yes CN's II-XII intact bilaterally Cognition (Neuro): normal cognition Gait exam (Neuro): Unable to assess gait Motor exam (neuro): Abnormal motor strength present (decreased with cog wheeling) Extrem: General: normal to inspection Psych: Appearance: grossly normal Objective Data Vital Signs Vital Signs: Vital Signs - 24 hr 03/09/20 20:34 03/09/20 22:00 03/09/20 22:09 Temperature 37.3 C Pulse Rate 92 88 Respiratory Rate 16 Blood Pressure 130/42 L Pulse Oximetry 98 100 03/10/20 06:00 03/10/20 10:23 Temperature 36.8 C Pulse Rate 100 84 Respiratory Rate 16 Blood Pressure 116/51 L Pulse Oximetry 95 Intake/Output Intake/Output
[2020-03-10 14:00] VITALS: BP 106/41; PULSE 78; RESP 18; TEMP 36.4; O2SAT 100
[2020-03-10 18:06] LABS: Glucose Point of Care 137 (65-105)
[2020-03-10 19:45] VITALS: O2SAT 96
[2020-03-10] MEDS: SODIUM CHLORIDE 0.9% IV 1,000 ML 75 ML IV CONT (20:42)
[2020-03-10 20:47] VITALS: PULSE 84
[2020-03-10 22:01] LABS: Glucose Point of Care 121 (65-105)
[2020-03-11] VITALS (19 sets, daily range): BP systolic 120–147; BP diastolic 42–66; PULSE 76–103; RESP 16–18; TEMP 37.2–38.1; O2SAT 96–99
[2020-03-11] MEDS: ACETAMINOPHEN 325 MG TABLET 650 MG PO ×4 (01:30→22:58)
[2020-03-11] MEDS: CARBIDOPA/LEVODOPA 25/250 MG TABLET 1 TABLET PO ×3 (05:08→22:44)
[2020-03-11 06:21] LABS: Basophils Percent Auto 0.1 % (0.2-1.2); Eosinophils Absolute Auto 0.1 K/mm3 (0-0.3); Eosinophils Percent Auto 1.6 % (0-4.4); Immature Granulocyte Absolute 0.08 K/mm3 (0.00-0.031); Lymphocytes Absolute Auto 1.56 K/mm3 (0.9-3.2); Mean Corpuscular HGB Conc 31.5 g/dl (32-36); Mean Corpuscular Hemoglobin 30.2 pg (26-34); Mean Corpuscular Volume 95.8 fl (80-100); Mean Platelet Volume 9.5 fl (7.4-10.4); Monocytes Absolute Auto 0.7 K/mm3 (0.1-0.6); Neutrophils Absolute Auto 5.8 K/mm3 (1.3-6.7); Neutrophils Percent Auto 70.3 % (45.5-73.1); Platelet Count Result 176 k/mm3 (150-375); Red Blood Count 2.12 M/mm3 (4.2-5.4); Red Cell Distribution Width 13.8 % (11.5-14.5); White Blood Count 8.2 K/mm3 (4.5-10.0)
[2020-03-11 06:31] LABS: Hemoglobin 6.4 g/dL (12.0-15.0)
[2020-03-11 06:32] LABS: Hematocrit 20.3 % (37.0-47.0)
[2020-03-11 06:34] LABS: Blood Urea Nitrogen 27 mg/dL (7-17); Calcium 7.9 mg/dL (8.4-10.2); Carbon Dioxide 23 mmol/L (22-30); Chloride 107 mmol/L (98-107); Estimated CRCL calculation 49 ml/min; Estimated Glomerular Filt Rate > 60; Glucose 122 mg/dL (65-105); Magnesium 2.2 mg/dL (1.6-2.3); Potassium 3.9 mmol/L (3.4-5.0); Sodium 134 mmol/L (137-145)
--- NOTE | 2020-03-11 07:31 | P.CDI_ITS ---
CDI Query Clarification Request - Anemia, postoperative anemia with EBL 1000cc during surgery has been documented - 03/03 H&H 12.4/38.5, 03/11 H&H 6.4/20.3 Please further specify type/cause and acuity of anemia: * Acute blood loss anemia * Acute anemia of other cause * Other * Unable to determine
--- NOTE | 2020-03-11 07:31 | WPDCDIQUERY2 ---
CDI Query Clarification Request - Anemia, postoperative anemia with EBL 1000cc during surgery has been documented - 03/03 H&H 12.4/38.5, 03/11 H&H 6.4/20.3 Please further specify type/cause and acuity of anemia: Acute blood loss anemia Acute anemia of other cause Other Unable to determine
[2020-03-11 07:57] LABS: Glucose Point of Care 124 (65-105)
--- NOTE | 2020-03-11 09:07 | PM.PNORT ---
Progress Note: A&P Assessment and Plan (1) S/P total hip arthroplasty: Qualifiers: Laterality: left Qualified Code(s): Z96.642 - Presence of left artificial hip joint Code(s): Z96.649 - Presence of unspecified artificial hip joint Status: Acute Assessment and Plan: POD #5: LEFT JADA HgB 6.4 today. 2 units PRBC ordered by medicine team. Resume PT/OT when medically stable. WBAT. Walker. Fall Risk. Monitor dressing. Continue to monitor limitations with dorsiflexion of the LLE. Patient requires orthosis from [facility]. Brace ordered, should be delivered today. Continue Pain control. Limit narcotic use due to drowsiness. Ice lateral hip. Continue DVT prophylaxis. Incentive spirometry. SCDs bilaterally. Offload left foot/ankle on pillows. Nursing aware. (2) Postoperative anemia: Code(s): D64.9 - Anemia, unspecified Status: Acute Assessment and Plan: Hgb 6.4 today. 2 units PRBCs ordered by medicine team. Continue to monitor. Subjective Subjective Date/Time Seen: 03/11/20 09:07 Complaints of pain, lateral hip and bottom due to excoriation. Continued weakness with dorsiflexion of the left foot. Mild improvement in mentation, disoriented to place but does know she is in the hospital. Overall, feeling weak. Review of Systems Constitutional: Constitutional: Denies chills, Reports fatigue, Denies fever(s), Reports lethargy and Reports weakness Cardiovascular: Cardiovascular: Denies chest pain, Reports leg edema (b/l LE edema ) and Denies lightheadedness Respiratory: Respiratory: Denies cough, Denies dyspnea and Denies wheezing Gastrointestinal: Gastrointestinal: Denies abdominal pain, Denies constipation, Denies diarrhea, Denies nausea and Denies vomiting Genitourinary: Comments: incontinence, excoriation of skin Musculoskeletal: Musculoskeletal: Reports arthralgias (left hip ) and Reports joint swelling (left hip ) Comments: Complaints of pain left ankle Exam Const: General: no acute distress and uncomfortable Resp: Effort & Inspection: normal respiratory effort Cardio: Rate: regular rate Rhythm: regular rhythm GI: Inspection: non-distended Skin: Other: excoriation of the perineum due to urinary incontinence Neuro: General: No gait normal Cognition (Neuro): abnormal cognition (disoriented to place ) Speech: normal speech Motor exam (neuro): 5/5 motor strength present throughout (decreased LLE ) and Abnormal motor strength present (LLE ) Sensory Exam: normal sensation (sensation to hallux of the left foot intact but diminished ) Extrem: Right lower extremity: normal to inspection, full ROM, normal capillary refill and lower leg (2+ pitting edema ) Left lower extremity: hip/thigh Details: abnormal to inspection (ecchymosis, internal rotation/plantarflexion of the left foot ), swelling (LLE) and abnormal ROM (pain due to recent surgical intervention ), knee (previous TKA incision noted ) Details: normal to inspection; no tenderness and no swelling, lower leg Details: pitting edema Details: 2+ and ecchymosis (medial ankle ) and foot Details: normal capillary refill and vascular exam Details: dorsalis pedis pulse present and posterior tibial pulse present Other: Inability to dorsiflex left ankle/hallux. Mild decreased in sensation to the left hallux. +eversion of the foot/+plantarflexion. Negative Maricel's sign. Ecchymosis to the medial aspect of the ankle/tenderness. Left thigh soft/nontender. Mild tenderness of the distal thigh. Knee without effusion/tenderness. Previous TKA incision noted. B/L LE pitting edema noted. Psych: Mental Status: mental status grossly normal (disoriented to place ) Affect: Anxious affect present Objective Data Vital Signs Vital Signs: Vital Signs - 24 hr 03/10/20 10:23 03/10/20 14:00 03/10/20 19:45 Temperature 36.4 C L Pulse Rate 84 78 Respiratory Rate 18 Blood Pressure 106/41 L Pulse Oximetry 100 96 03/10/20 20:4
[2020-03-11] MEDS: MAGNESIUM OXIDE 400 MG TABLET PO (09:18)
[2020-03-11] MEDS: FUROSEMIDE 20 MG TABLET PO (09:18)
[2020-03-11] MEDS: DOCUSATE SODIUM 100 MG CAPSULE PO ×2 (09:18→16:30)
[2020-03-11] MEDS: GABAPENTIN 100 MG CAPSULE PO ×3 (09:18→16:30)
[2020-03-11] MEDS: EZETIMIBE 10 MG TABLET PO (09:18)
[2020-03-11] MEDS: METOPROLOL TARTRATE 50 MG TAB PO ×2 (09:19→22:48)
[2020-03-11] MEDS: ASPIRIN 81 MG ENTERIC TABLET PO (09:24)
[2020-03-11] MEDS: CLOPIDOGREL BISULFATE 75 MG TABLET PO (09:24)
[2020-03-11] MEDS: FONDAPARINUX SODIUM 2.5 MG/0.5 ML SYRINGE SUB-Q (09:24)
--- NOTE | 2020-03-11 09:25 | P.PNIM_ITS ---
Progress Note: A&P Assessment and Plan (1) Fracture of hip, left, closed: Qualifiers: Encounter type: initial encounter Qualified Code(s): S72.002A - Fracture of unspecified part of neck of left femur, initial encounter for closed fracture Code(s): S72.002A - Fracture of unspecified part of neck of left femur, initial encounter for closed fracture Status: Acute Assessment and Plan: * Patient presents with acute left subcapital femoral fracture after a fall at home. * POD#5 left total hip arthroplasty 7/ by Dr Agrawal and Dr Barron. EBL 1000mL per the op note, monitor H&H. * Wound care, pain control, and DVT prophylaxis postoperatively per ortho recommendations. * Waiting on a brace from [facility]. (2) Anemia: Qualifiers: Anemia type: unspecified type Qualified Code(s): D64.9 - Anemia, unspecified Code(s): D64.9 - Anemia, unspecified Status: Acute Assessment and Plan: * Acute blood loss anemia in the postoperative period with EBL 1,000mL during surgery. * Hgb 6.4 this morning; will transfuse 2 units packed RBC and recheck H&H this afternoon. (3) Postoperative confusion: Code(s): R41.0 - Disorientation, unspecified Status: Acute Assessment and Plan: * Patient was very confused and agitated the evening after surgery, improving. Cognition is waxing and waning. * Neurology following, history of Parkinson's. CT brain on arrival after her fall shows no acute intracranial findings. Repeat CT brain 03/09 shows no change. * Continue avoiding narcotics if possible. (4) CAD (coronary artery disease): Qualifiers: Associated angina: without angina Coronary Disease-Associated Artery/Lesion type: [place] artery [place] vs. transplanted heart: [place] heart Qualified Code(s): I25.10 - Atherosclerotic heart disease of [place] coronary artery without angina pectoris Code(s): I25.10 - Atherosclerotic heart disease of [place] coronary artery without angina pectoris Status: Chronic Assessment and Plan: * History of CAD with coronary stent to RCA in 2018. Her medical assistant per diem is Dr Siddiqi in [place]. She has been seen here by Dr Silverman. Plavix and ASA resumed. (5) Parkinsons disease: Code(s): G20 - Parkinson's disease Status: Acute Assessment and Plan: * Continue patient's home Sinemet. I presume her diagnosis is contributing to slower cognitive reaction in the postoperative period. * Her neurologist is Dr Feldman. Appreciate neurology consultation. * PT/OT. (6) Hypertension: Qualifiers: Hypertension type: essential hypertension Qualified Code(s): I10 - Essential (primary) hypertension Code(s): I10 - Essential (primary) hypertension Status: Acute Assessment and Plan: * Last /44. Continue home metoprolol and lisinopril. Will monitor BP and adjust treatment as needed. Subjective Date/time seen: 03/11/20 09:00 Interval history: Ms. Kaufman is a 74yo F admitted for left hip fracture after a fall at home seen in follow up this morning POD#5 s/p left total hip arthroplas ty. She is resting sitting up in bed about to eat breakfast. She is weak and notes left hip discomfort. She also notes discomfort to her bottom as nursing noted she has some skin breakdown. She denies any chest pain or shortness of breath; no nausea, abdominal pain or vomiting. Cognition is waxing and wan
--- NOTE | 2020-03-11 09:25 | PM.IMPN ---
Progress Note: A&P Assessment and Plan (1) Fracture of hip, left, closed: Qualifiers: Encounter type: initial encounter Qualified Code(s): S72.002A - Fracture of unspecified part of neck of left femur, initial encounter for closed fracture Code(s): S72.002A - Fracture of unspecified part of neck of left femur, initial encounter for closed fracture Status: Acute Assessment and Plan: Patient presents with acute left subcapital femoral fracture after a fall at home. POD#5 left total hip arthroplasty 7/ by Dr Agrawal and Dr Barron. EBL 1000mL per the op note, monitor H&H. Wound care, pain control, and DVT prophylaxis postoperatively per ortho recommendations. Waiting on a brace from [employer]. (2) Anemia: Qualifiers: Anemia type: unspecified type Qualified Code(s): D64.9 - Anemia, unspecified Code(s): D64.9 - Anemia, unspecified Status: Acute Assessment and Plan: Acute blood loss anemia in the postoperative period with EBL 1,000mL during surgery. Hgb 6.4 this morning; will transfuse 2 units packed RBC and recheck H&H this afternoon. (3) Postoperative confusion: Code(s): R41.0 - Disorientation, unspecified Status: Acute Assessment and Plan: Patient was very confused and agitated the evening after surgery, improving. Cognition is waxing and waning. Neurology following, history of Parkinson's. CT brain on arrival after her fall shows no acute intracranial findings. Repeat CT brain 03/09 shows no change. Continue avoiding narcotics if possible. (4) CAD (coronary artery disease): Qualifiers: Associated angina: without angina Coronary Disease-Associated Artery/Lesion type: [place] artery [place] vs. transplanted heart: [place] heart Qualified Code(s): I25.10 - Atherosclerotic heart disease of [place] coronary artery without angina pectoris Code(s): I25.10 - Atherosclerotic heart disease of [place] coronary artery without angina pectoris Status: Chronic Assessment and Plan: History of CAD with coronary stent to RCA in 2018. Her college president is Dr Siddiqi in [place]. She has been seen here by Dr Silverman. Plavix and ASA resumed. (5) Parkinsons disease: Code(s): G20 - Parkinson's disease Status: Acute Assessment and Plan: Continue patient's home Sinemet. I presume her diagnosis is contributing to slower cognitive reaction in the postoperative period. Her neurologist is Dr Feldman. Appreciate neurology consultation. PT/OT. (6) Hypertension: Qualifiers: Hypertension type: essential hypertension Qualified Code(s): I10 - Essential (primary) hypertension Code(s): I10 - Essential (primary) hypertension Status: Acute Assessment and Plan: Last 125/44. Continue home metoprolol and lisinopril. Will monitor BP and adjust treatment as needed. Subjective Date/time seen: 03/11/20 09:00 Interval history: Ms. Kaufman is a 74yo F admitted for left hip fracture after a fall at home seen in follow up this morning POD#5 s/p left total hip arthroplasty. She is resting sitting up in bed about to eat breakfast. She is weak and notes left hip discomfort. She also notes discomfort to her bottom as nursing noted she has some skin breakdown. She denies any chest pain or shortness of breath; no nausea, abdominal pain or vomiting. Cognition is waxing and waning but no agitation or hallucinations. Review of Systems Review of Systems: Narrative: Twelve systems were reviewed with pertinent positives and negatives as per HPI. Exam Narrative: Exam Narrative: General: Patient resting in bed about to eat breakfast in no acute distress. Neuro: Slightly more confused than yesterday; waxing and waning. Yesterday she was able to tell
[2020-03-11] MEDS: SODIUM CHLORIDE 0.9% IV 1,000 ML 75 ML IV CONT (10:03)
--- NOTE | 2020-03-11 12:58 | PCDIET ---
Weekly nutritional screen. Patient is tolerating current diabetic diet with variable intake. reports patient has been eating well. Patient confused during visit. No weight loss reported. BMI 26.5. No nutritional needs at this time.
[2020-03-11 13:21] LABS: Glucose Point of Care 160 (65-105)
[2020-03-11 17:58] LABS: Glucose Point of Care 195 (65-105)
[2020-03-11] MEDS: FUROSEMIDE INJ 40 MG/4 ML VIAL 20 MG IV PUSH (18:33)
[2020-03-11 19:14] LABS: Hemoglobin 9.3 g/dL (12.0-15.0)
[2020-03-12] VITALS (7 sets, daily range): BP systolic 124–147; BP diastolic 42–49; PULSE 67–82; RESP 16–18; TEMP 36.4–36.8; O2SAT 98–100; BMI 10.0
[2020-03-12] MEDS: CARBIDOPA/LEVODOPA 25/250 MG TABLET 1 TABLET PO ×3 (06:21→20:57)
[2020-03-12 06:34] LABS: Basophils Percent Auto 0.2 % (0.2-1.2); Eosinophils Percent Auto 0.3 % (0-4.4); Hematocrit 25.7 % (37.0-47.0); Hemoglobin 8.3 g/dL (12.0-15.0); Immature Granulocyte Absolute 0.09 K/mm3 (0.00-0.031); Lymphocytes Absolute Auto 1.23 K/mm3 (0.9-3.2); Lymphocytes Percent Auto 14.2 % (18.3-44.2); Mean Corpuscular HGB Conc 32.3 g/dl (32-36); Mean Corpuscular Hemoglobin 29.7 pg (26-34); Mean Corpuscular Volume 92.1 fl (80-100); Mean Platelet Volume 9.3 fl (7.4-10.4); Monocytes Absolute Auto 0.9 K/mm3 (0.1-0.6); Monocytes Percent Auto 9.8 % (2.6-8.5); Neutrophils Absolute Auto 6.4 K/mm3 (1.3-6.7); Neutrophils Percent Auto 74.5 % (45.5-73.1); Nucleated Red Blood Cells Perc 0.2 % (0.0-0.2); Platelet Count Result 191 k/mm3 (150-375); Red Blood Count 2.79 M/mm3 (4.2-5.4); Red Cell Distribution Width 15.1 % (11.5-14.5); White Blood Count 8.7 K/mm3 (4.5-10.0)
[2020-03-12 06:47] LABS: Blood Urea Nitrogen 32 mg/dL (7-17); Calcium 7.8 mg/dL (8.4-10.2); Carbon Dioxide 24 mmol/L (22-30); Chloride 107 mmol/L (98-107); Estimated CRCL calculation 29 ml/min; Estimated Glomerular Filt Rate 44; Glucose 157 mg/dL (65-105); Magnesium 2.3 mg/dL (1.6-2.3); Phosphorus 4.2 mg/dL (2.5-4.5); Potassium 4.2 mmol/L (3.4-5.0); Sodium 135 mmol/L (137-145)
[2020-03-12 06:53] LABS: Glucose Point of Care 172 (65-105)
[2020-03-12] MEDS: ASPIRIN 81 MG ENTERIC TABLET PO (08:36)
[2020-03-12] MEDS: EZETIMIBE 10 MG TABLET PO (08:36)
[2020-03-12] MEDS: FONDAPARINUX SODIUM 2.5 MG/0.5 ML SYRINGE SUB-Q (08:36)
[2020-03-12] MEDS: GABAPENTIN 100 MG CAPSULE PO ×3 (08:36→17:23)
[2020-03-12] MEDS: CLOPIDOGREL BISULFATE 75 MG TABLET PO (08:36)
[2020-03-12] MEDS: METOPROLOL TARTRATE 50 MG TAB PO ×2 (08:36→20:57)
[2020-03-12] MEDS: MAGNESIUM OXIDE 400 MG TABLET PO (08:36)
[2020-03-12] MEDS: FUROSEMIDE 20 MG TABLET PO (08:36)
[2020-03-12] MEDS: lisinopriL 10 MG TABLET PO (08:37)
[2020-03-12] MEDS: DOCUSATE SODIUM 100 MG CAPSULE PO ×2 (08:37→17:22)
[2020-03-12] MEDS: TUBING, BLOOD PLUM PUMP TUBING 1 EACH XX (08:38)
[2020-03-12] MEDS: SODIUM CHLORIDE 0.9% IV 1,000 ML 75 ML IV CONT (08:39)
[2020-03-12] MEDS: ACETAMINOPHEN 325 MG TABLET 650 MG PO ×2 (08:49→14:52)
--- NOTE | 2020-03-12 08:59 | PM.PNORT ---
Progress Note: A&P Assessment and Plan (1) S/P total hip arthroplasty: Qualifiers: Laterality: left Qualified Code(s): Z96.642 - Presence of left artificial hip joint Code(s): Z96.649 - Presence of unspecified artificial hip joint Status: Acute Assessment and Plan: POD #6: LEFT JADA HgB 8.3 today s/p 2 units PRBC yesterday. Continue PT/OT, OOB to chair. WBAT. Walker. Fall Risk. Monitor dressing. Change prior to discharge. Continue to monitor limitations with dorsiflexion of the LLE. Patient requires orthosis from [employer]. Brace delivered yesterday, patient does not have shoes present so unable to utilize brace at this time. Will need to bring shoes for PT/OT and brace use. Continue Pain control. Limit narcotic use due to drowsiness. Ice lateral hip. Continue DVT prophylaxis. Incentive spirometry. SCDs bilaterally. Offload left foot/ankle on pillows. Nursing aware. Hip abductor pillow while supine in bed. Will continue to monitor. (2) Postoperative anemia: Code(s): D64.9 - Anemia, unspecified Status: Acute Assessment and Plan: Hgb 8.3 today. Continue to monitor. Subjective Subjective Date/Time Seen: 03/12/20 08:59 Patient sitting up in chair. Mentation with continued improvement, confusion to situation. No complaints of pain at this time. Working with PT. Review of Systems Constitutional: Constitutional: Denies chills, Reports fatigue, Denies fever(s), Reports lethargy and Reports weakness Cardiovascular: Cardiovascular: Denies chest pain, Reports leg edema (b/l LE edema ) and Denies lightheadedness Respiratory: Respiratory: Denies cough, Denies dyspnea and Denies wheezing Gastrointestinal: Gastrointestinal: Denies abdominal pain, Denies constipation, Denies diarrhea, Denies nausea and Denies vomiting Genitourinary: Comments: incontinence, excoriation of skin Musculoskeletal: Musculoskeletal: Reports arthralgias (left hip ) and Reports joint swelling (left hip ) Comments: Complaints of pain left ankle Exam Const: General: no acute distress and uncomfortable Resp: Effort & Inspection: normal respiratory effort Cardio: Rate: regular rate Rhythm: regular rhythm GI: Inspection: non-distended Skin: Other: excoriation of the perineum due to urinary incontinence Neuro: General: No gait normal Cognition (Neuro): abnormal cognition (disoriented to situation ) Speech: normal speech Motor exam (neuro): 5/5 motor strength present throughout (decreased LLE ) and Abnormal motor strength present (LLE ) Sensory Exam: normal sensation (sensation to hallux of the left foot intact but diminished ) Extrem: Right lower extremity: normal to inspection, full ROM, normal capillary refill and lower leg (2+ pitting edema ) Left lower extremity: hip/thigh Details: abnormal to inspection (ecchymosis, internal rotation/plantarflexion of the left foot ), swelling (LLE) and abnormal ROM (pain due to recent surgical intervention ), knee (previous TKA incision noted ) Details: normal to inspection; no tenderness and no swelling, lower leg Details: pitting edema Details: 2+ and ecchymosis (medial ankle ) and foot Details: normal capillary refill and vascular exam Details: dorsalis pedis pulse present and posterior tibial pulse present Other: Inability to dorsiflex left ankle/hallux. Mild decreased in sensation to the left hallux. +eversion of the foot/+plantarflexion. Negative Maricel's sign. Ecchymosis to the medial aspect of the ankle/tenderness. Left thigh soft/nontender. Mild tenderness of the distal thigh. Knee without effusion/tenderness. Previous TKA incision noted. B/L LE pitting edema noted. Psych: Mental Status: mental status grossly normal (disoriented to situation ) Objective Data Vital Signs Vital Signs: Vital Signs - 24 hr 03/11/20 09:19 03/11/20 11:27 03/11/20 11:41 Temperature 37.5 C 37.3 C Pulse Rate 96 76 77 Respiratory Rate 16 18 Blood Pr
[2020-03-12 09:48] LABS: Glucose Point of Care 140 (65-105)
[2020-03-12 12:11] LABS: Hematocrit 28.1 % (37.0-47.0); Hemoglobin 9.1 g/dL (12.0-15.0)
[2020-03-12 14:34] LABS: Glucose Point of Care 122 (65-105)
[2020-03-12 14:57] LABS: SARS-CoV-2 RNA PCR Negative
--- NOTE | 2020-03-12 17:04 | PM.IMPN ---
Progress Note: A&P Assessment and Plan (1) Fracture of hip, left, closed: Qualifiers: Encounter type: initial encounter Qualified Code(s): S72.002A - Fracture of unspecified part of neck of left femur, initial encounter for closed fracture Code(s): S72.002A - Fracture of unspecified part of neck of left femur, initial encounter for closed fracture Status: Acute Assessment and Plan: -----postop day 6 and patient is doing better. Her mental status is close to baseline and her hemoglobin has remained stable. She did get a blood transfusion earlier in the stay. She will likely go to the rehab center tomorrow. Continue ortho is recommendations. (2) Anemia: Qualifiers: Anemia type: unspecified type Qualified Code(s): D64.9 - Anemia, unspecified Code(s): D64.9 - Anemia, unspecified Status: Acute Assessment and Plan: -----Acute blood loss anemia in the postoperative period with EBL 1,000mL during surgery. She does not have any excessive bruising or any indication of hematoma. Hemoglobin has been stable since her transfusion yesterday. Monitor. (3) Postoperative confusion: Code(s): R41.0 - Disorientation, unspecified Status: Acute Assessment and Plan: -----Patient was very confused and agitated the evening after surgery which is now improved. Cognition is waxing and waning. Neurology following, history of Parkinson's. CT brain on arrival after her fall shows no acute intracranial findings. Repeat CT brain 03/09 shows no change. Continue avoiding narcotics if possible. (4) CAD (coronary artery disease): Qualifiers: Coronary Disease-Associated Artery/Lesion type: [place] artery [place] vs. transplanted heart: [place] heart Associated angina: without angina Qualified Code(s): I25.10 - Atherosclerotic heart disease of [place] coronary artery without angina pectoris Code(s): I25.10 - Atherosclerotic heart disease of [place] coronary artery without angina pectoris Status: Chronic Assessment and Plan: -----History of CAD with coronary stent to RCA in 2018. Her medical transcription editor is Dr Siddiqi in [place]. She has been seen here by Dr Silverman. Plavix and ASA resumed. (5) Parkinsons disease: Code(s): G20 - Parkinson's disease Status: Acute Assessment and Plan: -----Continue patient's Sinemet. Doing better today. (6) Hypertension: Qualifiers: Hypertension type: essential hypertension Qualified Code(s): I10 - Essential (primary) hypertension Code(s): I10 - Essential (primary) hypertension Status: Acute Assessment and Plan: ------Last bp 147/49. Continue home metoprolol and lisinopril. Time Spent With Patient Time with patient: 25 - 35 minutes Subjective Date/time seen: 03/12/20 17:04 Interval history: Pt is a 74-year-old female here for hip fracture. Patient was seen today and is alert and oriented x4. She said she is having some mild pain on her left groin but is getting better with the pain medication. She is eating and drinking well. She denies nausea, vomiting, fevers, chills, constipation or diarrhea. Review of Systems Review of Systems: All systems reviewed & are unremarkable except as noted in HPI and below Exam Narrative: Exam Narrative: General: Elderly patient resting comfortably in bed in no acute distress HEENT: normocephalic Neck: supple Neuro: Alert and oriented x4 CV:RRR Resp:CTA--no crackles Abd: Soft, non distended. No pain to palpation. Positive bowel sounds Extremities: Abductor pillow with some edema to bilateral legs. Sensation intact. Incision clean and dry. expected amount of brusing. Objective Data Vital Signs Vital Signs: Vital Signs - 24 hr 03/11/20 17:23 03/11/20 17:29 03/11/20 18:27 Temperature 100.6 F H 100.6 F H 100.1 F H Pulse Rate 91 100 Respiratory Rate 16 18 Blood Pressure 135/53 L
[2020-03-12 18:05] LABS: Glucose Point of Care 108 (65-105)
[2020-03-13 00:07] LABS: Glucose Point of Care 159 (65-105)
[2020-03-13 06:00] VITALS: BP 133/45; PULSE 76; RESP 18; TEMP 37.1; O2SAT 98
[2020-03-13 06:19] LABS: Hematocrit 24.3 % (37.0-47.0); Hemoglobin 7.9 g/dL (12.0-15.0)
[2020-03-13] MEDS: CARBIDOPA/LEVODOPA 25/250 MG TABLET 1 TABLET PO ×3 (06:30→21:43)
[2020-03-13 06:34] LABS: Alanine Aminotransferase 15 U/L (4-35); Albumin Level 2.5 g/dL (3.5-5.1); Alkaline Phosphatase 129 U/L (38-126); Aspartate Amino Transferase 47 U/L (14-36); Bilirubin,Total 0.9 mg/dL (0.2-1.3); Blood Urea Nitrogen 26 mg/dL (7-17); Calcium 7.9 mg/dL (8.4-10.2); Carbon Dioxide 22 mmol/L (22-30); Chloride 108 mmol/L (98-107); Estimated CRCL calculation 43 ml/min; Estimated Glomerular Filt Rate > 60; Glucose 135 mg/dL (65-105); Potassium 3.8 mmol/L (3.4-5.0); Sodium 134 mmol/L (137-145)
[2020-03-13 08:00] VITALS: PULSE 76; RESP 18; O2SAT 98
[2020-03-13 08:30] LABS: INR 1.1
[2020-03-13 08:31] LABS: Partial Thromboplastin Time 28.9 SECONDS (22.3-36.8)
--- NOTE | 2020-03-13 08:41 | PM.PNORT ---
Progress Note: A&P Assessment and Plan (1) S/P total hip arthroplasty: Qualifiers: Laterality: left Qualified Code(s): Z96.642 - Presence of left artificial hip joint Code(s): Z96.649 - Presence of unspecified artificial hip joint Status: Acute Assessment and Plan: POD #7: LEFT JADA HgB 7.9 today. Continue PT/OT, OOB to chair. WBAT. Walker. Fall Risk. Monitor dressing. Change prior to discharge. Continue to monitor limitations with dorsiflexion of the LLE. Patient requires orthosis from 3D Designer. Brace delivered Wednesday, Continue Pain control. Limit narcotic use due to drowsiness. Ice lateral hip. Continue DVT prophylaxis. Incentive spirometry. SCDs bilaterally. Offload left foot/ankle on pillows. Nursing aware. Hip abductor pillow while supine in bed. Will continue to monitor. (2) Postoperative anemia: Code(s): D64.9 - Anemia, unspecified Status: Acute Subjective Subjective Date/Time Seen: 03/13/20 08:41 Patient awake, up to commode. More alert. No new complaints Exam Const: General: no acute distress and uncomfortable Resp: Effort & Inspection: normal respiratory effort Cardio: Rate: regular rate Rhythm: regular rhythm GI: Inspection: non-distended Skin: Other: excoriation of the perineum due to urinary incontinence Neuro: General: No gait normal Cognition (Neuro): abnormal cognition (disoriented to situation ) Speech: normal speech Motor exam (neuro): 5/5 motor strength present throughout (decreased LLE ) and Abnormal motor strength present (LLE ) Sensory Exam: normal sensation (sensation to hallux of the left foot intact but diminished ) Extrem: Right lower extremity: normal to inspection, full ROM, normal capillary refill and lower leg (2+ pitting edema ) Left lower extremity: hip/thigh Details: abnormal to inspection (ecchymosis), swelling ( leg) and abnormal ROM (pain due to recent surgical intervention ), knee (previous TKA incision noted ) Details: normal to inspection; no tenderness and no swelling, lower leg Details: pitting edema Details: 2+ and ecchymosis (medial ankle ), ankle Details: abnormal ROM and other ( minimal dorsiflexion ankle) and foot Details: normal capillary refill and vascular exam Details: dorsalis pedis pulse present and posterior tibial pulse present Other: Inability to dorsiflex left ankle/hallux. Mild decreased in sensation to the left hallux. +eversion of the foot/+plantarflexion. Negative Maricel's sign. Ecchymosis to the medial aspect of the ankle/tenderness. Left thigh soft/nontender. Mild tenderness of the distal thigh. Knee without effusion/tenderness. Previous TKA incision noted. B/L LE pitting edema noted. Psych: Mental Status: mental status grossly normal (disoriented to situation ) Objective Data Vital Signs Vital Signs: Vital Signs - 24 hr 03/12/20 14:00 03/12/20 20:00 03/12/20 20:57 Temperature 98.3 F Pulse Rate 77 82 82 Respiratory Rate 16 18 Blood Pressure 147/49 H Pulse Oximetry 100 98 03/12/20 22:00 03/13/20 06:00 Temperature 97.8 F 98.8 F Pulse Rate 82 76 Respiratory Rate 18 18 Blood Pressure 124/44 L 133/45 L Pulse Oximetry 98 98 Intake/Output Intake/Output: Intake & Output 03/10/20 03/11/20 03/12/20 03/13/20 23:59 23:59 23:59 23:59 Intake Total 2009 2660 2140 200 Output Total 200 Balance 1810 2660 2140 200 Meds/Results Medications: Active Medications Generic Name Dose Route Start Last Admin Trade Name Freq PRN Reason Stop Dose Admin Acetaminophen 650 mg 03/04/20 15:33 03/12/20 14:52 Tylenol Tablet PO 650 mg Q6H PRN Administration Mild Pain (1-3) or Fever Hydrocodone Bitart/Acetaminophen 1 tab 03/05/20 10:45 03/06/20 03:03 [place] 5-325 Mg PO 1 tab Q6H PRN Administration Pain Rated 4-6 Aspirin 81 mg 03/07/20 09:00 03/12/20 08:36 Aspirin Ec PO 81 mg DAILY CAMI Administration Carbidopa/Levodopa 1 tablet 03/09/20 14:00 0
[2020-03-13] MEDS: lisinopriL 10 MG TABLET PO (09:00)
[2020-03-13 09:31] LABS: Glucose Point of Care 136 (65-105)
[2020-03-13] MEDS: CLOPIDOGREL BISULFATE 75 MG TABLET PO (09:36)
[2020-03-13] MEDS: EZETIMIBE 10 MG TABLET PO (09:36)
[2020-03-13] MEDS: METOPROLOL TARTRATE 50 MG TAB PO ×2 (09:36→21:38)
[2020-03-13] MEDS: MAGNESIUM OXIDE 400 MG TABLET PO (09:36)
[2020-03-13] MEDS: DOCUSATE SODIUM 100 MG CAPSULE PO ×2 (09:36→17:19)
[2020-03-13] MEDS: FUROSEMIDE 20 MG TABLET PO (09:36)
[2020-03-13] MEDS: GABAPENTIN 100 MG CAPSULE PO ×3 (09:36→17:19)
[2020-03-13] MEDS: ASPIRIN 81 MG ENTERIC TABLET PO (09:39)
[2020-03-13 12:54] LABS: Glucose Point of Care 123 (65-105)
[2020-03-13] MEDS: FONDAPARINUX SODIUM 2.5 MG/0.5 ML SYRINGE SUB-Q (13:32)
[2020-03-13 13:59] LABS: Hematocrit 27.9 % (37.0-47.0); Hemoglobin 8.8 g/dL (12.0-15.0)
[2020-03-13 14:00] VITALS: BP 142/56; PULSE 77; RESP 18; TEMP 36.7; O2SAT 96
--- NOTE | 2020-03-13 14:00 | WPDNEUROPN ---
Progress Note: A&P Assessment and Plan (1) Postoperative anemia: Code(s): D64.9 - Anemia, unspecified Status: Acute (2) Postoperative confusion: Code(s): R41.0 - Disorientation, unspecified Status: Acute (3) Hypotension: Qualifiers: Hypotension type: unspecified hypotension type Qualified Code(s): I95.9 - Hypotension, unspecified Code(s): I95.9 - Hypotension, unspecified Status: Acute (4) Anemia: Qualifiers: Anemia type: unspecified type Qualified Code(s): D64.9 - Anemia, unspecified Code(s): D64.9 - Anemia, unspecified Status: Acute (5) S/P total hip arthroplasty: Qualifiers: Laterality: left Qualified Code(s): Z96.642 - Presence of left artificial hip joint Code(s): Z96.649 - Presence of unspecified artificial hip joint Status: Acute (6) Diabetes: Code(s): E11.9 - Type 2 diabetes mellitus without complications Status: Acute (7) CAD (coronary artery disease): Qualifiers: Coronary Disease-Associated Artery/Lesion type: [place] artery [place] vs. transplanted heart: [place] heart Associated angina: without angina Qualified Code(s): I25.10 - Atherosclerotic heart disease of [place] coronary artery without angina pectoris Code(s): I25.10 - Atherosclerotic heart disease of [place] coronary artery without angina pectoris Status: Chronic (8) Hypertension: Qualifiers: Hypertension type: essential hypertension Qualified Code(s): I10 - Essential (primary) hypertension Code(s): I10 - Essential (primary) hypertension Status: Acute (9) Parkinsons disease: Code(s): G20 - Parkinson's disease Status: Acute (10) Fracture of hip, left, closed: Qualifiers: Encounter type: initial encounter Qualified Code(s): S72.002A - Fracture of unspecified part of neck of left femur, initial encounter for closed fracture Code(s): S72.002A - Fracture of unspecified part of neck of left femur, initial encounter for closed fracture Status: Acute Additional Plan patient's encephalopathy is improving the medication for the Parkinson's disease have been adjusted we should continue the present management Review of Systems Review of Systems: All systems reviewed & are unremarkable except as noted in HPI and below Exam Const: General: comfortable and no acute distress HENMT: General nose exam: Normal nares present Mouth: Yes moist mucous membranes Eyes: General: appearance normal, both eyes and all related structures Neck: Neck: supple and no JVD Resp: Effort & Inspection: normal respiratory effort Auscultation: clear to auscultation bilaterally Cardio: Rate: regular rate Rhythm: regular rhythm GI: Auscultation: normal bowel sounds Skin: General skin exam: normal color and no rashes or lesions noted Neuro: Other: patient is awake alert oriented x4 however clearly has encephalopathy which is multifactorial knee region she has had the recent hip surgery performed and also has evidence of Parkinson's disease with little tremor but rigidity and bradykinesia and the memory deficit Extrem: General: normal to inspection Psych: Other: evidence of mild encephalopathy Objective Data Vital Signs Vital Signs: Vital Signs - 24 hr 03/12/20 20:00 03/12/20 20:57 03/12/20 22:00 Temperature 36.6 C Pulse Rate 82 82 82 Respiratory Rate 18 18 Blood Pressure 124/44 L Pulse Oximetry 98 98 03/13/20 06:00 03/13/20 08:00 Temperature 37.1 C Pulse Rate 76 76 Respiratory Rate 18 18 Blood Pressure 133/45 L Pulse Oximetry 98 98 Intake/Output Intake/Output: Intake & Output 03/10/20 03/11/20 03/12/20 03/13/20 23:59 23:59 23:59 23:59 Intake Total 20090 2140 560 Output Total Balance 18090 2140 560 Meds/Results Medications: Active Medications Generic Name Dose Route Start Last Admin Trade Name Freq FESTUSN
--- NOTE | 2020-03-13 16:16 | PM.IMPN ---
Progress Note: A&P Assessment and Plan (1) Fracture of hip, left, closed: Qualifiers: Encounter type: initial encounter Qualified Code(s): S72.002A - Fracture of unspecified part of neck of left femur, initial encounter for closed fracture Code(s): S72.002A - Fracture of unspecified part of neck of left femur, initial encounter for closed fracture Status: Acute Assessment and Plan: -----postop day 7 and patient is doing better. Her mental status is close to baseline and her hemoglobin has remained stable. She did get a blood transfusion earlier in the stay. She was found to be retaining urine and sounds like this is an acute on chronic thing. Discussed with son, plan to keep the sauer in and see a urologist outpt again since she saw on a few months ago for the same thing. She will likely go to the rehab center tomorrow. Continue ortho is recommendations. (2) Anemia: Qualifiers: Anemia type: unspecified type Qualified Code(s): D64.9 - Anemia, unspecified Code(s): D64.9 - Anemia, unspecified Status: Acute Assessment and Plan: -----Acute blood loss anemia in the postoperative period with EBL 1,000mL during surgery. She does not have any excessive bruising or any indication of hematoma. Hemoglobin has been stable since her transfusion yesterday. Monitor. (3) Postoperative confusion: Code(s): R41.0 - Disorientation, unspecified Status: Acute Assessment and Plan: -----Patient was very confused and agitated the evening after surgery which is now improved. Could have been post op confusion, urinary retention or worsening parkinsons. Spoke with son about this. Neurology following. CT brain on arrival after her fall shows no acute intracranial findings. Repeat CT brain 03/09 shows no change. (4) CAD (coronary artery disease): Qualifiers: Coronary Disease-Associated Artery/Lesion type: [place] artery [place] vs. transplanted heart: [place] heart Associated angina: without angina Qualified Code(s): I25.10 - Atherosclerotic heart disease of [place] coronary artery without angina pectoris Code(s): I25.10 - Atherosclerotic heart disease of [place] coronary artery without angina pectoris Status: Chronic Assessment and Plan: -----History of CAD with coronary stent to RCA in 2018. Her steam shovel runner is Dr Siddiqi in [place]. She has been seen here by Dr Silverman. Plavix and ASA resumed. (5) Parkinsons disease: Code(s): G20 - Parkinson's disease Status: Acute Assessment and Plan: -----Continue patient's Sinemet. Doing better today. (6) Hypertension: Qualifiers: Hypertension type: essential hypertension Qualified Code(s): I10 - Essential (primary) hypertension Code(s): I10 - Essential (primary) hypertension Status: Acute Assessment and Plan: ------Last bp 142/56. Continue home metoprolol and lisinopril. (7) Urinary retention: Code(s): R33.9 - Retention of urine, unspecified Status: Acute Assessment and Plan: -----See above. Sounds like this is acute on chronic, worsened with sx. Plan to leave sauer in and see urology outpt. Subjective Date/time seen: 03/13/20 16:16 Interval history: Pt is a 74-year-old who is hospitalized after hip sx for postoperative confusion. Pt was seen today with son at bedside and she states she is doing well. She is having some discomfort on her backside and some urinary leakage. The pt states this leaking has been going on for months and is pretty much happening all day. When bladderscanning her she was >999 so a sauer catheter was placed which got 2000ml out. The pt is feeling much better since this and was sitting up in the chair. I spoke to her son for a long while about all of her labs and findings so far. Pt had a small BM today and is eating/drinking. No nausea or vomiting. Exam Narrative: Exam
[2020-03-13 17:57] LABS: Glucose Point of Care 108 (65-105)
--- NOTE | 2020-03-13 19:22 | PC.NURSE ---
GINETTE HERE AND SEEN 317 BUTTOCKS AND MEPILEX APPLIED.
[2020-03-13 21:38] VITALS: PULSE 93
[2020-03-13 22:00] VITALS: BP 149/46; PULSE 93; RESP 18; TEMP 36.9; O2SAT 98
[2020-03-14] MEDS: ACETAMINOPHEN 325 MG TABLET 650 MG PO (00:49)
[2020-03-14 05:43] LABS: Glucose Point of Care 163 (65-105)
[2020-03-14] MEDS: CARBIDOPA/LEVODOPA 25/250 MG TABLET 1 TABLET PO (05:53)
[2020-03-14 06:00] VITALS: BP 135/48; PULSE 77; RESP 18; TEMP 37.2; O2SAT 97
[2020-03-14 06:40] LABS: Hematocrit 24.3 % (37.0-47.0); Hemoglobin 7.8 g/dL (12.0-15.0)
[2020-03-14 06:52] LABS: Alanine Aminotransferase 12 U/L (4-35); Albumin Level 2.3 g/dL (3.5-5.1); Alkaline Phosphatase 146 U/L (38-126); Aspartate Amino Transferase 45 U/L (14-36); Bilirubin,Total 0.7 mg/dL (0.2-1.3)
[2020-03-14 08:36] LABS: Glucose Point of Care 105 (65-105)
--- NOTE | 2020-03-14 08:44 | PM.PNORT ---
Progress Note: A&P Assessment and Plan (1) S/P total hip arthroplasty: Qualifiers: Laterality: left Qualified Code(s): Z96.642 - Presence of left artificial hip joint Code(s): Z96.649 - Presence of unspecified artificial hip joint Status: Acute Assessment and Plan: POD #8: LEFT JADA HgB 7.8 today, stable. Continue PT/OT, OOB to chair. WBAT. Walker. Fall Risk. Monitor dressing. Change prior to discharge. Continue to monitor limitations with dorsiflexion of the LLE. Patient requires orthosis from Nursing Program Coordinator. Continue Pain control. Limit narcotic use due to drowsiness. Ice lateral hip. Continue DVT prophylaxis. Incentive spirometry. SCDs bilaterally. Offload left foot/ankle on pillows. Nursing aware. Hip abductor pillow while supine in bed. Will continue to monitor. (2) Postoperative anemia: Code(s): D64.9 - Anemia, unspecified Status: Acute Assessment and Plan: improving, stable at this time. Subjective Subjective Date/Time Seen: 03/14/20 08:44 Patient awake. Standing/transferring to the chair with PT. Heavy assist of two. C/o pain of the LLE with ambulation. Review of Systems Constitutional: Constitutional: Denies chills, Reports fatigue, Denies fever(s), Reports lethargy and Reports weakness Cardiovascular: Cardiovascular: Denies chest pain, Reports leg edema (b/l LE edema ) and Denies lightheadedness Respiratory: Respiratory: Denies cough, Denies dyspnea and Denies wheezing Gastrointestinal: Gastrointestinal: Denies abdominal pain, Denies constipation, Denies diarrhea, Denies nausea and Denies vomiting Genitourinary: Comments: incontinence, excoriation of skin Musculoskeletal: Musculoskeletal: Reports arthralgias (left hip ) and Reports joint swelling (left hip ) Comments: Complaints of pain left ankle Exam Const: General: no acute distress and uncomfortable Resp: Effort & Inspection: normal respiratory effort Cardio: Rate: regular rate Rhythm: regular rhythm GI: Inspection: non-distended Urinary Catheter: Urinary Catheter: patent and draining and urine clear Skin: Other: Neuro: General: No gait normal Cognition (Neuro): abnormal cognition (mentation improving ) Speech: normal speech Motor exam (neuro): 5/5 motor strength present throughout (decreased LLE ) and Abnormal motor strength present (LLE ) Sensory Exam: normal sensation (sensation to hallux of the left foot intact but diminished ) Extrem: Right lower extremity: normal to inspection, full ROM, normal capillary refill and lower leg (2+ pitting edema ) Left lower extremity: hip/thigh Details: abnormal to inspection (ecchymosis), swelling ( leg) and abnormal ROM (pain due to recent surgical intervention ), knee (previous TKA incision noted ) Details: normal to inspection; no tenderness and no swelling, lower leg Details: pitting edema Details: 2+ and ecchymosis (medial ankle ), ankle Details: abnormal ROM and other ( minimal dorsiflexion ankle) and foot Details: normal capillary refill and vascular exam Details: dorsalis pedis pulse present and posterior tibial pulse present Other: Inability to dorsiflex left ankle/hallux. Mild decreased in sensation to the left hallux. +eversion of the foot/+plantarflexion. Negative Maricel's sign. Ecchymosis to the medial aspect of the ankle/tenderness. Left thigh soft/nontender. Mild tenderness of the distal thigh. Knee without effusion/tenderness. Previous TKA incision noted. B/L LE pitting edema noted. Psych: Mental Status: mental status grossly normal (mentation improving ) Objective Data Vital Signs Vital Signs: Vital Signs - 24 hr 03/13/20 14:00 03/13/20 21:38 03/13/20 22:00 Temperature 36.7 C 36.9 C Pulse Rate 77 93 93 Respiratory Rate 18 18 Blood Pressure 142/56 H 149/46 H Pulse Oximetry 96 98 03/14/20 06:00 Temperature 37.2 C Pulse Rate 77 Respiratory Rate 18 Blood Pressure 135/48 L Pulse Oximetry 97 Intake/Output In
[2020-03-14] MEDS: ASPIRIN 81 MG ENTERIC TABLET PO (09:01)
[2020-03-14] MEDS: METOPROLOL TARTRATE 50 MG TAB PO (09:01)
[2020-03-14] MEDS: FUROSEMIDE 20 MG TABLET PO (09:01)
[2020-03-14] MEDS: DOCUSATE SODIUM 100 MG CAPSULE PO (09:01)
[2020-03-14] MEDS: CLOPIDOGREL BISULFATE 75 MG TABLET PO (09:01)
[2020-03-14] MEDS: MAGNESIUM OXIDE 400 MG TABLET PO (09:01)
[2020-03-14] MEDS: EZETIMIBE 10 MG TABLET PO (09:02)
[2020-03-14] MEDS: lisinopriL 10 MG TABLET PO (09:02)
[2020-03-14] MEDS: GABAPENTIN 100 MG CAPSULE PO (09:02)
[2020-03-14] MEDS: FONDAPARINUX SODIUM 2.5 MG/0.5 ML SYRINGE SUB-Q (09:08)
[2020-03-14 09:12] VITALS: O2SAT 96
--- NOTE | 2020-03-14 10:43 | PM.DS ---
DS: Admitting Diagnosis Admitting Diagnosis Admitting Diagnosis: Fracture of unspecified part of neck of left femur, initial encounter for closed fracture DS: Discharge Diagnosis Discharge Diagnosis (1) Fracture of hip, left, closed: Qualifiers: Encounter type: initial encounter Qualified Code(s): S72.002A - Fracture of unspecified part of neck of left femur, initial encounter for closed fracture Code(s): S72.002A - Fracture of unspecified part of neck of left femur, initial encounter for closed fracture Status: Acute Assessment and Plan: -----Pt underwent a total left hip arthroplasty 03/06. This was complicated by post op confusion which was likely d/t a combo anesthesia, urinary retention, and pain medication. Day of discharge pt was back to her baseline according to at bedside. pt to complete 28 days total of anticoagulation per ortho. h and h dropped after sx and pt had 2 units transfused but remained stable thereafter. She was given iron and her h and h should be monitored outpt. Pt given discharge care instructions at discharge and should follow up with ortho as recommended. (2) Anemia: Qualifiers: Anemia type: unspecified type Qualified Code(s): D64.9 - Anemia, unspecified Code(s): D64.9 - Anemia, unspecified Status: Acute Assessment and Plan: -----Acute blood loss anemia in the postoperative period with EBL 1,000mL during surgery. She does not have any excessive bruising or any indication of hematoma. No black stool. Hemoglobin has been stable. (3) Postoperative confusion: Code(s): R41.0 - Disorientation, unspecified Status: Acute Assessment and Plan: -----Patient was very confused and agitated the evening after surgery which is now improved. Could have been post op confusion, urinary retention or worsening parkinsons. Spoke with son and about this. Neurology following. CT brain on arrival after her fall shows no acute intracranial findings. Repeat CT brain 03/09 shows no change. (4) CAD (coronary artery disease): Qualifiers: Coronary Disease-Associated Artery/Lesion type: [place] artery [place] vs. transplanted heart: [place] heart Associated angina: without angina Qualified Code(s): I25.10 - Atherosclerotic heart disease of [place] coronary artery without angina pectoris Code(s): I25.10 - Atherosclerotic heart disease of [place] coronary artery without angina pectoris Status: Chronic Assessment and Plan: -----History of CAD with coronary stent to RCA in 2018. Her housekeeper/custodian/laundry worker is Dr Siddiqi in [place]. She has been seen here by Dr Silverman. Plavix and ASA resumed. (5) Parkinsons disease: Code(s): G20 - Parkinson's disease Status: Acute Assessment and Plan: -----Continue patient's Sinemet. Doing better today. (6) Hypertension: Qualifiers: Hypertension type: essential hypertension Qualified Code(s): I10 - Essential (primary) hypertension Code(s): I10 - Essential (primary) hypertension Status: Acute Assessment and Plan: ------Last bp 150/57. Continue home metoprolol and lisinopril. (7) Urinary retention: Code(s): R33.9 - Retention of urine, unspecified Status: Acute Assessment and Plan: -----See above. Sounds like this is acute on chronic, worsened with sx. Plan to leave sauer in and see urology outpt. She has seen [facility] here in the past. DS: Summary Hospital Course Reason for hospitalization: Left hip fracture Hospital Course: Patient is a 74-year-old female who presented emergency room on April 02 for complaints of left groin pain after fall and found to have a left hip fracture. Patient was taken to surgery on March 06 and did well but after surgery she had postop confusion, anemia, and urinary retention which extended her stay. The day of discharge the patient was ba
[2020-03-14] MEDS: MORPHINE SULFATE 4 MG/ML INJ 2 MG IV PUSH (11:52)
[2020-03-14 12:21] LABS: Glucose Point of Care 137 (65-105)
[2020-03-14 13:15] VITALS: BMI 10.0
[2020-03-14 14:00] VITALS: BP 150/57; PULSE 81; RESP 18; TEMP 36.4; O2SAT 100
--- NOTE | 2020-03-15 12:48 | WPDHPUPDATE1 ---
History and Physical Update Update Date/Time: 03/06/20 13:30 History and Physical has been reviewed, including an updated exam of the patient. Patient identified Nickel allergy. Plan for Total hip to adress fracture, acetabular arthritis, and avoid nickel allergy Risks, benefits, and alternatives have been discussed and questions answered. Patient and agree to proceed with procedure.
== END 2020-03-14 16:30 | DRG 470 ==
LOC: ANHED 20:10 → ANH3MEDSUR 03-04 00:57
PROVIDERS: Family Medicine; Orthopaedic Surgery; Physician Assistant; Admitting Provider Internal Medicine; Emergency Provider Emergency Medicine; PCP Family Medicine; Visit Provider Physician Assistant
PROC: 0SRB04A Replacement of Left Hip Joint with Ceramic on Polyethylene Synthetic Substitute, Uncemented, Open Approach (ICD-10-PCS; CPT 27125; principal; 2020-03-06 12:00)
DX: S72.012A Unspecified intracapsular fracture of left femur, initial encounter for closed fracture (principal); D62 Acute posthemorrhagic anemia; W01.0XXA Fall on same level from slipping, tripping and stumbling without subsequent striking against object, initial encounter; Y93.E9 Activity, other interior property and clothing maintenance; G20 Parkinson's disease; I95.9 Hypotension, unspecified; R41.0 Disorientation, unspecified; R33.9 Retention of urine, unspecified; M54.2 Cervicalgia; I25.10 Atherosclerotic heart disease of native coronary artery without angina pectoris; I10 Essential (primary) hypertension; G62.9 Polyneuropathy, unspecified; Z11.59 Encounter for screening for other viral diseases; Z96.652 Presence of left artificial knee joint; I25.2 Old myocardial infarction; Z79.02 Long term (current) use of antithrombotics/antiplatelets; Z79.82 Long term (current) use of aspirin; Z79.899 Other long term (current) drug therapy; Z98.42 Cataract extraction status, left eye; Z98.41 Cataract extraction status, right eye; Z96.1 Presence of intraocular lens; Z91.048 Other nonmedicinal substance allergy status
CPT/HCPCS: 36415; 36430; 70450; 71045; 71046; 72125; 73501; 73502; 80048; 80053; 80076; 81001; 82140; 83036; 83690; 83735; 84100; 84443; 85014; 85018; 85025; 85027; 85055; 85610; 85730; 86850; 86900; 86901; 86920; 87635; 93005; 96365; 96375; 96376; 97110; 97116; 97161; 97165; 97530; 97535; 99285; A9270; C1713; C1776; C9803; J0131; J0171; J0330; J0690; J1100; J1170; J1652; J1741; J1815; J1885; J1940; J2270; J2370; J2405; J2704; J2795; J3010; J3480; J7030; J7120; P9016; U0003